=== PATIENT | female | born 1995 | race Caucasian/White ===

== ENCOUNTER 2018-05-20 15:59 | Emergency (ER) | payer BC ==
--- NOTE | 2018-05-20 17:00 | ED ---
General Adult HPI - General Chief complaint: Abdominal Pain Stated complaint: 7 weeks and cramping Time Seen by Provider: 05/20/18 16:51 Source: patient Mode of arrival: ambulatory Limitations: no limitations - History of Present Illness Initial comments: Dictation was produced using [employer] dictation software. please excuse any grammatical, word or spelling errors. Chief Complaint: 22-year-old female with no significant past medical history presents with pelvic pain. History of Present Illness: 22-year-old female presents with chief complaint of pelvic pain. Patient states she's been having pain today. Patient states she is approximately 7 weeks based on last menstrual period. She is scheduled to have an ultrasound in the next few days. She states that her cramping is constant to the suprapubic area. Denies any vaginal bleeding. No nausea vomiting or diarrhea. She has been taking vitamins. The ROS documented in this emergency department record has been reviewed and confirmed by me. Those systems with pertinent positive or negative responses have been documented in the HPI. All other systems are other negative and/or noncontributory. PHYSICAL EXAM: General Impression: Alert and oriented x3, not in acute distress HEENT: Normocephalic atraumatic, extra-ocular movements intact, pupils equal and reactive to light bilaterally, mucous membranes moist. Cardiovascular: Heart regular rate and rhythm, S1&S2 audible, no murmurs, rubs or gallops Chest: Lungs clear to auscultation bilaterally, no rhonchi, no wheeze, no rales Abdomen: Bowel sounds present, abdomen soft, non-tender, non-distended, no organomegaly Musculoskeletal: Pulses present and equal in all extremities, no peripheral edema Motor: no focal deficits noted Neurological: CN II-XII grossly intact, no focal motor or sensory deficits noted Skin: Intact with no visualized rashes Psych: Normal affect and mood ED course: 22yo female presents with first trimester pelvic pain. Vital signs upon arrival shows blood pressure 180/125. Rest of vital signs within acceptable limits. Patient appears comfortable at this time. Physical examination is benign. Laboratory evaluation obtained. CBC, coag panel, electronic, urinalysis is unremarkable. OB ultrasound shows early [place] [address]. Patient is comfortable at this time. She does have established care with ASSISTED LIVING NURSING DIRECTOR. Patient clear for discharge. Patient refusing pelvic exam at this time. Patient to be discharge. Told to return if she has worsening pain, vaginal bleeding. Otherwise she is told to make an appointment with her ASSISTED LIVING NURSING DIRECTOR as soon as possible. Agreeable to disposition. - Related Data Home Medications Medication Instructions Recorded Confirmed Pnv No.95/Ferrous Fum/Folic AC 1 tab PO DAILY 05/20/18 05/20/18 [ Multivitamin Tablet] Allergies Allergy/AdvReac Type Severity Reaction Status Date / Time No Known Allergies Allergy Verified 05/20/18 17:06 Review of Systems ROS Statement: Those systems with pertinent positive or pertinent negative responses have been documented in the HPI. ROS Other: All systems not noted in ROS Statement are negative. Past Medical History Past Medical History: No Reported History History of Any Multi-Drug Resistant Organisms: None Reported Past Surgical History: No Surgical Hx Reported Past Psychological History: No Psychological Hx Reported Smoking Status: Never smoker Past Alcohol Use History: None Reported Past Drug Use History: None Reported General Exam Limitations: no limitations Course Vital Signs 05/20/18 05/20/18 05/20/18 16:07 18:26 18:59 Temperature 98.6 F Pulse Rate 88 91 90 Respiratory 18 16 18 Rate Blood Pressure 180/125 141/103 145/98 O2 Sat by Pulse 99 100 99 Oximetry Medical Decision Making - Lab Data Result diagrams: 05/20/18 17:14 05/20/18 17:14 Lab Results 05/20/18 05/20/18 05/20/18 Range/Units 17:14 17:14 17:14 WBC 7.9 (3.8-10.6) k/uL RBC 4.78 (3.80-5.40) m/uL Hgb 14.2 (11.4-16.0) gm/dL Hct 42.0 (34.0-46.0) % MCV 87.8 (80.0-100.0) fL MCH 29.7 (25.0-35.0) pg MCHC 33.8 (31.0-37.0) g/dL RDW 13.8 (11.5-15.5) % Plt Count 275 (150-450) k/uL Neutrophils % 66 % Lymphocytes % 27 % Monocytes % 4 % Eosinophils % 1 % Basophils % 0 % Neutrophils # 5.2 (1.3-7.7) k/uL Lymphocytes # 2.2 (1.0-4.8) k/uL Monocytes # 0.3 (0-1.0) k/uL Eosinophils # 0.1 (0-0.7) k/uL Basophils # 0.0 (0-0.2) k/uL PT (9.0-12.0) sec INR (<1.2) Sodium 139 (137-145) mmol/L Potassium 3.9 (3.5-5.1) mmol/L Chloride 106 (98-107) mmol/L Carbon Dioxide 24 (22-30) mmol/L Anion Gap 9 mmol/L BUN 9 (7-17) mg/dL Creatinine 0.75 (0.52-1.04) mg/dL Est GFR (CKD-EPI)AfAm >90 (>60 ml/min/1.73 sqM) Est GFR (CKD-EPI)NonAf >90 (>60 ml/min/1.73 sqM) Glucose 97 (74-99) mg/dL Calcium 9.5 (8.4-10.2) mg/dL HCG, Quant 50989.3 mIU/mL Urine Color Urine Appearance (Clear) Urine pH (5.0-8.0) Ur Specific [place] (1.001-1.035) Urine Protein (Negative) Urine Glucose (UA) (Negative) Urine Ketones (Negative) Urine Blood (Negative) Urine Nitrite (Negative) Urine Bilirubin (Negative) Urine Urobilinogen (<2.0) mg/dL Ur Leukocyte Esterase (Negative) Blood Type A Positive Blood Type Recheck CABO Indicated Antibody Screen NEGATIVE Spec Expiration Date 05/23/2018231305/20/18 05/20/18 Range/Units 17:14 17:20 WBC (3.8-10.6) k/uL RBC (3.80-5.40) m/uL Hgb (11.4-16.0) gm/dL Hct (34.0-46.0) % MCV (80.0-100.0) fL MCH (25.0-35.0) pg MCHC (31.0-37.0) g/dL RDW (11.5-15.5) % Plt Count (150-450) k/uL Neutrophils % % Lymphocytes % % Monocytes % % Eosinophils % % Basophils % % Neutrophils # (1.3-7.7) k/uL Lymphocytes # (1.0-4.8) k/uL Monocytes # (0-1.0) k/uL Eosinophils # (0-0.7) k/uL Basophils # (0-0.2) k/uL PT 10.1 (9.0-12.0) sec INR 0.9 (<1.2) Sodium (137-145) mmol/L Potassium (3.5-5.1) mmol/L Chloride (98-107) mmol/L Carbon Dioxide (22-30) mmol/L Anion Gap mmol/L BUN (7-17) mg/dL Creatinine (0.52-1.04) mg/dL Est GFR (CKD-EPI)AfAm (>60 ml/min/1.73 sqM) Est GFR (CKD-EPI)NonAf (>60 ml/min/1.73 sqM) Glucose (74-99) mg/dL Calcium (8.4-10.2) mg/dL HCG, Quant mIU/mL Urine Color Light Yellow Urine Appearance Clear (Clear) Urine pH 6.0 (5.0-8.0) Ur Specific [place] 1.005 (1.001-1.035) Urine Protein Trace H (Negative) Urine Glucose (UA) Negative (Negative) Urine Ketones Negative (Negative) Urine Blood Negative (Negative) Urine Nitrite Negative (Negative) Urine Bilirubin Negative (Negative) Urine Urobilinogen <2.0 (<2.0) mg/dL Ur Leukocyte Esterase Negative (Negative) Blood Type Blood Type Recheck Antibody Screen Spec Expiration Date Disposition Clinical Impression: Pelvic pain affecting Disposition: HOME SELF-CARE Condition: Good Instructions (If sedation given, give patient instructions): Pelvic Pain in Women (ED) Is patient prescribed a controlled substance at d/c from ED?: No Referrals: Rochelle Jaime DO [Family Provider] - 1-2 days Time of Disposition: 19:02
[2018-05-20 17:28] LABS: INR 0.9 (<1.2); Prothrombin Time 10.1 sec (9.0-12.0)
[2018-05-20 17:33] LABS: Anion Gap 9 mmol/L; Blood Urea Nitrogen 9 mg/dL (7-17); Calcium 9.5 mg/dL (8.4-10.2); Carbon Dioxide 24 mmol/L (22-30); Chloride 106 mmol/L (98-107); Glucose 97 mg/dL (74-99); Potassium 3.9 mmol/L (3.5-5.1); Sodium 139 mmol/L (137-145)
[2018-05-20 17:42] LABS: Basophils % (A) 0 %; Eosinophils # (A) 0.1 k/uL (0-0.7); Eosinophils % (A) 1 %; HGB 14.2 gm/dL (11.4-16.0); Lymphocytes # (A) 2.2 k/uL (1.0-4.8); Lymphocytes % (A) 27 %; MCH 29.7 pg (25.0-35.0); MCHC 33.8 g/dL (31.0-37.0); MCV 87.8 fL (80.0-100.0); Mean Platelet Volume 6.8; Monocytes # (A) 0.3 k/uL (0-1.0); Monocytes % (A) 4 %; Neutrophils # (A) 5.2 k/uL (1.3-7.7); Neutrophils % (A) 66 %; Platelet Count 275 k/uL (150-450); RBC 4.78 m/uL (3.80-5.40); RDW 13.8 % (11.5-15.5); WBC 7.9 k/uL (3.8-10.6)
[2018-05-20 17:52] LABS: Appearance,Urine Clear (Clear); Bilirubin,Urine Negative (Negative); Blood,Urine Negative (Negative); Color,Urine Light Yellow; Glucose,Urine (UA) Negative (Negative); Ketones,Urine Negative (Negative); Leukocyte Esterase,Urine Negative (Negative); Nitrite,Urine Negative (Negative); Protein,Urine Trace (Negative); Specific Gravity,Urine 1.005 (1.001-1.035); Urobilinogen,Urine <2.0 mg/dL (<2.0)
[2018-05-20 18:28] LABS: HCG,Quantitative Serum 16472.3 mIU/mL
--- NOTE | 2018-05-20 18:47 | US ---
EXAMINATION TYPE: Transabdominal DATE OF EXAM: 05/20/2018 6:19 PM COMPARISON: NONE CLINICAL HISTORY: Pain. Cramping. EXAM PERFORMED: Transvaginal (TV) and Transabdominal (TA) EXAM MEASUREMENTS: GESTATIONAL AGE / DATING Physician Established: Not yet established Dates by LMP: (7 weeks/1 days) EDC: 01/05/2019 Dates by First Scan: No previous this is first scan Dates by Current Scan for: No IUP seen at this time MATERNAL ANATOMY Uterus: 6.9 x 3.5 x 5.0 cm Right Ovary: 2.3 x 1.4 x 1.3cm Left Ovary: 3.1 x 1.9 x 1.5 cm Post CDS / Adnexa: wnl Presence of free fluid: no Presence of corpus luteal cyst: no Presence of subchorionic bleed: no GESTATION / SURVEY Yolk Sac (normal less than 6mm): 2mm IUP: No IUP seen at this time Beta HcG (if available): Not available at this time Gestational sac and yolk sac seen. No pole seen at this time. IMPRESSION: Findings consistent with early intrauterine . Follow-up exam is recommended in 2 weeks to co nfirm a living fetus. No adnexal mass.
[2018-05-20 18:59] VITALS: RESP 18
[2018-05-20 19:15] VITALS: BP 134/87; PULSE 95; TEMP 98.7
== END 2018-05-20 19:14 | disposition home or self-care (01) ==
LOC: EC 15:59
DX: O99.89 Other specified diseases and conditions complicating pregnancy, childbirth and the puerperium (principal); R10.2 Pelvic and perineal pain; Z3A.01 Less than 8 weeks gestation of pregnancy
CPT/HCPCS: 36415; 76801; 76817; 80048; 81003; 84702; 85025; 85610; 86850; 86900; 86901; 87086; 99284

== ENCOUNTER 2018-12-09 16:23 | Observation (INO) | payer BC, OTHER ==
[2018-12-09 17:13] LABS: Basophils % (A) 0 %; Eosinophils # (A) 0.1 k/uL (0-0.7); Eosinophils % (A) 1 %; HCT 33.5 % (34.0-46.0); HGB 11.1 gm/dL (11.4-16.0); Lymphocytes # (A) 1.8 k/uL (1.0-4.8); Lymphocytes % (A) 21 %; MCH 29.7 pg (25.0-35.0); MCHC 33.1 g/dL (31.0-37.0); MCV 89.8 fL (80.0-100.0); Mean Platelet Volume 8.1; Monocytes # (A) 0.5 k/uL (0-1.0); Monocytes % (A) 5 %; Neutrophils # (A) 6.2 k/uL (1.3-7.7); Neutrophils % (A) 70 %; Platelet Count 241 k/uL (150-450); Poikilocytosis Slight; RBC 3.73 m/uL (3.80-5.40); RDW 14.5 % (11.5-15.5); WBC 8.8 k/uL (3.8-10.6)
[2018-12-09 17:26] LABS: ALT 16 U/L (9-52); AST 23 U/L (14-36); African American GFR (CKD) >90 (>60 ml/min/1.73 sqM); Blood Urea Nitrogen 4 mg/dL (7-17); LDH 412 U/L (313-618)
[2018-12-09 17:59] LABS: Appearance,Urine Clear (Clear); Bilirubin,Urine Negative (Negative); Blood,Urine Negative (Negative); Color,Urine Light Yellow; Glucose,Urine (UA) Negative (Negative); Ketones,Urine Negative (Negative); Leukocyte Esterase,Urine Negative (Negative); Nitrite,Urine Negative (Negative); Protein,Urine Trace (Negative); Specific Gravity,Urine 1.006 (1.001-1.035); Urobilinogen,Urine <2.0 mg/dL (<2.0)
[2018-12-09] MEDS ORDERED: ONDANSETRON 4 MG/2 ML VIAL IVP STA (18:16)
[2018-12-09] MEDS: LACTATED RINGERS 1,000 ML IV SCH ×4 (18:40→23:39)
[2018-12-09 19:47] VITALS: RESP 16
[2018-12-09] MEDS ORDERED: ONDANSETRON 4 MG/2 ML VIAL IVP PRN (19:52)
--- NOTE | 2018-12-09 21:29 | P.HPOB ---
History of Present Illness H&P Date: 12/09/18 Chief Complaint: Nausea and vomiting Stacia is a 23-year-old at 34 weeks 5 days gestation who ryes complaining of nausea and vomiting since Thursday. She relates she's been able to keep very little down some water but no food, essentially every time she eats she throws up. This is a similar return to what she would had first almost 4-5 months for . She relates that she had had no other issues or problems with the and she was feeling well up until Thursday. On arrival to labor and delivery was noted that she had some mild elevations in her blood pressure including a 140/103 but predominantly in the 140/80 range. Due to this pre- clamped labs were drawn. She denied headache, epigastric pain or any visual changes. She also is noted to be dehydrated and was extremely anxious on arrival. On physical exam her heart was regular, lungs were clear, extremities without pain. Abdomen was soft gravid uterus is noted. Category 1 tracing is noted. Deep tendon reflexes are +2. Pertinent labs did include uric acid level VIII which is a very soft predictor of preeclampsia and in most literature now is not considered to be an accurate finding for preeclampsia. She also is noted to have a elevation in her protein to creatinine ratio 0.47. However, she also only has trace of protein in her urine and realistically I would expect at least 2+ protein before I would be concerned about her protein Kretsch creatinine ratio elevation particularly in the face of dehydration causing creatinine to be falsely elevated. I did explain all this to her and I have advised observation status so we can continue to monitor her blood pressures which of recently been 120/80 and to complete a 24 urine just to rule out elevated protein levels which could be indicative of early mild preeclampsia. Should she have early mild preeclampsia would recommend steroids to assist and boosting lung maturity for the fetus and very close monitoring moving forward. Assessment intrauterine at 34 weeks 5 days gestation.? Gestational hypertension versus anxiety versus preeclampsia Plan 24-hour urine and observation with serial blood pressure Past Medical History Past Medical History: No Reported History History of Any Multi-Drug Resistant Organisms: None Reported Past Surgical History: No Surgical Hx Reported Smoking Status: Never smoker Medications and Allergies Home Medications Medication Instructions Recorded Confirmed Type Acetaminophen [Tylenol] 500 mg PO Q4-6H PRN 12/09/18 12/09/18 History Calcium Carbonate [Tums] 500 mg PO 12/09/18 History Allergies Allergy/AdvReac Type Severity Reaction Status Date / Time No Known Allergies Allergy Verified 12/09/18 16:34 Exam Osteopathic Statement: *. No significant issues noted on an osteopathic structural exam other than those noted in the History and Physical/Consult. Vital Signs Temp Pulse Resp BP BP 12/09/18 19:28 96.6 F L 96 16 121/80 12/09/18 16:37 97.8 F 99 18 142/103 158/100 Intake and Output 12/09/18 12/09/18 12/09/18 06:59 14:59 22:59 Other: Weight 81.647 kg Results Result Diagrams: 12/09/18 16:56 12/09/18 16:56 Abnormal Lab Results - Last 24 Hours (Table) 12/09/18 12/09/18 12/09/18 Range/Units 16:52 16:52 16:56 RBC 3.73 L (3.80-5.40) m/uL Hgb 11.1 L (11.4-16.0) gm/dL Hct 33.5 L (34.0-46.0) % BUN (7-17) mg/dL Uric Acid (3.7-7.4) mg/dL Urine Protein Trace H (Negative) U Random Total Protein 34 H (<12) mg/dL 12/09/18 Range/Units 16:56 RBC (3.80-5.40) m/uL Hgb (11.4-16.0) gm/dL Hct (34.0-46.0) % BUN 4 L (7-17) mg/dL Uric Acid 8.0 H (3.7-7.4) mg/dL Urine Protein (Negative) U Random Total Protein (<12) mg/dL
[2018-12-09] MEDS ORDERED: diphenhydrAMINE 25 MG CAP PO PRN (23:40)
[2018-12-09] MEDS ORDERED: ACETAMINOPHEN TAB 325 MG TAB PO PRN (23:40)
[2018-12-09] MEDS ORDERED: CALCIUM CARBONATE 500 MG CHEWABLE PO PRN (23:44)
[2018-12-09 23:49] VITALS: BMI 34.0
[2018-12-10] MEDS: LACTATED RINGERS 1,000 ML IV SCH ×2 (02:02→11:49)
[2018-12-10 07:51] VITALS: BP 136/92; PULSE 88; TEMP 97.6
--- NOTE | 2018-12-11 12:41 | P.DS ---
Providers Date of admission: 12/09/18 19:41 Expected date of discharge: 12/10/18 Attending physician: Mauri Whitfield Primary care physician: Stated None Hospital Course: This is a 23-year-old female 1 para 0 at 34-5/7 weeks who initially presented for Dr. Whitfield with complaints of nausea and vomiting for 4 days. Upon arrival to triage she did have some elevated blood pressures but was also noted to be very anxious. She was admitted for IV hydration and antiemetics. She also underwent a 24-hour urine collection due to a protein to creatinine ratio that was elevated. All of her other labs were within normal limits. Her blood pressures for the most part were in the 120s over 70s to 80s. However she did have some elevated blood pressures up to 140s over 100s on admission. She denied any headache or blurry vision. She had some mild edema that had been unchanged. At the time that her 24-hour urine collection was completed, she had not required Zofran for almost 12 hours and was holding down food without difficulty. Her blood pressures remained stable. NSTs are reactive. Her 24 urine collection showed 867 mg of protein in a 24-hour period. She was advised that she does have preeclampsia based on these criteria and that she will need close follow-up. She has a follow-up appointment with Dr. Jaime on Thursday. She is advised to return to the hospital if she has any decreased movement, headaches, blurry vision, epigastric pain, or any other concerning symptoms. Patient Condition at Discharge: Stable Plan - Discharge Summary New Discharge Prescriptions: No Action Acetaminophen [Tylenol] 500 mg PO Q4-6H PRN PRN Reason: sleep Calcium Carbonate [Tums] 500 mg PO Discharge Medication List Acetaminophen [Tylenol] 500 mg PO Q4-6H PRN 12/09/18 [History] Calcium Carbonate [Tums] 500 mg PO 12/09/18 [History] Follow up Appointment(s)/Referral(s): Rochelle Jaime DO [Doctor of Osteopathic Medicine] - 12/13/18 Discharge Disposition: HOME SELF-CARE
== END 2018-12-10 20:45 | disposition home or self-care (01) ==
LOC: FBPOP 16:23 → 4FBP 19:41
PROVIDERS: ADMIT Obstetrics & Gynecology; ATTEND Obstetrics & Gynecology
DX: O14.93 Unspecified pre-eclampsia, third trimester (principal); O99.283 Endocrine, nutritional and metabolic diseases complicating pregnancy, third trimester; E86.0 Dehydration; O21.2 Late vomiting of pregnancy; Z3A.34 34 weeks gestation of pregnancy
CPT/HCPCS: 59025; 96376; 96361 ×2; 96374; 82570; 84156 ×2; 81050; 82565; 83615; 84450; 84460; 84520; 84550; 85025; 81003; G0463; G0378 ×2; J2405 ×2; 96360; 96375; 99215

== ENCOUNTER 2018-12-12 20:43 | Inpatient (IN) | payer OTHER ==
[2018-12-12 21:51] LABS: Basophils % (A) 0 %; Eosinophils # (A) 0.1 k/uL (0-0.7); Eosinophils % (A) 1 %; HCT 32.6 % (34.0-46.0); HGB 10.7 gm/dL (11.4-16.0); Lymphocytes # (A) 1.8 k/uL (1.0-4.8); Lymphocytes % (A) 22 %; MCH 29.9 pg (25.0-35.0); MCHC 32.9 g/dL (31.0-37.0); MCV 91.1 fL (80.0-100.0); Mean Platelet Volume 8.4; Monocytes # (A) 0.5 k/uL (0-1.0); Monocytes % (A) 6 %; Neutrophils # (A) 5.9 k/uL (1.3-7.7); Neutrophils % (A) 69 %; Platelet Count 219 k/uL (150-450); Poikilocytosis Slight; RBC 3.58 m/uL (3.80-5.40); RDW 14.4 % (11.5-15.5); WBC 8.4 k/uL (3.8-10.6)
[2018-12-12 22:07] LABS: ALT 18 U/L (9-52); AST 20 U/L (14-36); African American GFR (CKD) >90 (>60 ml/min/1.73 sqM); Blood Urea Nitrogen 4 mg/dL (7-17); LDH 438 U/L (313-618); Uric Acid 6.4 mg/dL (3.7-7.4)
[2018-12-12 22:30] LABS: Appearance,Urine Clear (Clear); Bilirubin,Urine Negative (Negative); Blood,Urine Negative (Negative); Color,Urine Light Yellow; Glucose,Urine (UA) Negative (Negative); Ketones,Urine Negative (Negative); Leukocyte Esterase,Urine Negative (Negative); Nitrite,Urine Negative (Negative); PH, Urine 6.5 (5.0-8.0); Protein,Urine Trace (Negative); Specific Gravity,Urine 1.006 (1.001-1.035); Urobilinogen,Urine <2.0 mg/dL (<2.0)
[2018-12-12] MEDS ORDERED: diphenhydrAMINE 25 MG CAP PO PRN (23:09)
[2018-12-12] MEDS ORDERED: diphenhydrAMINE 50 MG CAP PO PRN (23:09)
[2018-12-12] MEDS: BETAMET ACET-BETAMETH SOD PHOS 6 MG/ML VIAL IM SCH (23:31)
[2018-12-12] MEDS: ACETAMINOPHEN TAB 500 MG TAB PO PRN (23:32)
[2018-12-13 00:25] VITALS: BMI 34.0
[2018-12-13] MEDS ORDERED: MAGNESIUM SULFATE-WATER PMX 4 GM in WATER FOR INJECTION 1 100ML.BAG IVPB ONE (01:31)
[2018-12-13] MEDS ORDERED: CALCIUM GLUCONATE 1 GM/10 ML VIAL IV PRN (01:31)
[2018-12-13] MEDS: LACTATED RINGERS 1,000 ML IV SCH (01:50)
[2018-12-13] MEDS: MAGNESIUM SULFATE-WATER PMX 20 GM in WATER FOR INJECTION 1 500ML.BAG IV SCH ×3 (02:01→22:04)
--- NOTE | 2018-12-13 07:26 | P.MSEPDOC ---
Presenting Problems - Arrival Data Date of Arrival on Unit: 12/12/18 Time of Arrival on Unit: 20:43 Mode of Transport: Portable - Complaint OB-Reason for Admission/Chief Complaint: PIH Comment: headache, nausea, cramping Medical History - Information : 1 Para: 0 Term: 0 : 0 Abortions: Spontaneous or Elective: 0 Number of Living Children: 0 - Gestational Age Gestational Age by [place]LA (wks/days): 35 Weeks and 1 Days - History Complications: Preeclampsia Review of Systems - Review of Systems Constitutional: No problems Breast: No problems ENT: No problems Cardiovascular: No problems Respiratory: No problems Gastrointestinal: No problems Genitourinary: No problems Musculoskeletal: No problems Neurological: No problems Skin: No problems Vital Signs - Temperature Temperature: 95.7 F Temperature Source: Temporal Artery Scan - Pulse Right Brachial Pulse Rate: 91 Pulse Assessment Method: Automatic Cuff - Respirations Respiratory Rate: 16 Oxygen Delivery Method: Room Air - Blood Pressure Right Arm Sitting Blood Pressure: 136/87 Blood Pressure Mean: 103 Blood Pressure Source: Automatic Cuff Medical Screen Scoring (Pre) - Cervical Exam Dilation: 0 cm = 0 Membranes: Intact - Uterine Contractions Frequency: N/A - Maternal Vital Signs Maternal Temperature: N/A Maternal Blood Pressure: Diastolic > 89 = 1 Signs of Preeclampsia: Headache = 1, Nausea/Vomiting = 1, Edema of Face = 4 Maternal Respirations: N/A - Maternal Trauma Maternal Trauma: N/A - Assessment - Baby A Baseline FHR: 125 Heart Rate - NICHD Category: Category II (Indeterminate) = 3 NST: Reactive - Total Score - Baby A Total Score - Baby A: 10 - Total Score - Baby B Total Score - Baby B: 7 - Total Score - Baby C Total Score - Baby C: 7 - Level of Risk - Baby A Level of Risk - Baby A: High (10+) - Level of Risk - Baby B Level of Risk - Baby B: Medium (6-9) - Level of Risk - Baby C Level of Risk - Baby C: Medium (6-9) Physician Notification (Pre) - Physician Notified Physician Notified Date: 12/12/18 Physician Notified Time: 21:07 Spoke With: Augustin Ingram Order Received: Yes ([facility] work up) Physician Notification (Post) - Physician Notified Physician Notified Date: 12/12/18 Physician Notified Time: 23:00 Spoke With: Augustin New Order Received: Yes (admit obv, give Celestone) Disposition - Disposition OB Disposition: Admit, Observe, LDRP Suite I agree with the RN Medical Screening Exam: Yes Risk & Benefit of care provided described in d/c instruction: Yes Diagnosis: MILD TO MODERATE PRE-ECLAMPSIA, THIRD TRIMESTER
[2018-12-13] MEDS: ACETAMINOPHEN TAB 500 MG TAB PO PRN ×3 (08:10→17:53)
--- NOTE | 2018-12-13 08:48 | US ---
EXAMINATION TYPE: US OB >= 14 wk fetus DATE OF EXAM: 12/13/2018 COMPARISON: None CLINICAL HISTORY: Preeclampsia, possible medical induction of labor TECHNIQUE: Grayscale and B-mode sonography were performed of the gravid uterus with a transabdominal technique. GESTATIONAL AGE / DATING Physician Established: (35 weeks/2 days) EDC: 01/15/19 Dates by LMP: (36 weeks/4 days) EDC: 01/05/19 Dates by First Scan: not available Dates by Current Scan: (34 weeks/6 days) EDC: 01/18/19 SURVEY IUP: Single PLACENTA: Posterior PREVIA: No Previa KIRIT: 9.49 cm Normal CERVICAL LENGTH (transabdominal: norm > 3.0cm): not seen, no vaginal needed per Kelli [employer] PRESENTATION: Vertex BPD: 8.7 cm 35 weeks / 2 days HC: 31.4 cm 35 weeks / 1 days AC: 30.8 cm 34 weeks / 5 days FL: 6.9 cm 35 weeks / 2 days ESTIMATED WEIGHT IN GRAMS: 2564 grams ESTIMATED WEIGHT IN LBS/OZ: 5 lbs. 10 oz. WEIGHT PERCENTAGE BASED ON ESTABLISHED DATES: 39% HC/AC: 1.0 FL/AC: 22.3 HEART RATE: 134 bpm RHYTHM: Normal IMPRESSION: Single live intrauterine with a vertex position as a calculated sonographic age of 34 weeks and 6 days and estimated date of delivery of 01/18/2019. Amniotic fluid index is within normal limit s at 9.49. Cervical length is not visualized. Heart rate of 134 bpm.
[2018-12-13] MEDS ORDERED: CALCIUM CARBONATE 500 MG CHEWABLE PO PRN (09:00)
[2018-12-13] MEDS ORDERED: BUTORPHANOL 1 MG/ML 1 ML VIAL IV PRN (09:05)
[2018-12-13] MEDS ORDERED: DINOPROSTONE 10 MG INSERT.ER VAGINAL ONE (09:05)
--- NOTE | 2018-12-13 12:28 | P.HPOB ---
History of Present Illness H&P Date: 12/13/18 Chief Complaint: with severe features 23-year-old presented yesterday at 35 weeks and 1 day with a headache and increased blood pressures. She's had a known to have mild preeclampsia is her 24 urine protein last week was over 800. She was diagnosed with preeclampsia with severe features by Dr. Ruffin, and placed on magnesium sulfate. She is also given one dose of Celestone at 11 PM. I spoke with maternal- medicine this morning about her case. They recommended to move towards delivery. Her labs remained normal, blood pressures are stable with magnesium sulfate on board, ultrasound today showed a 5 lbs. 10 oz. child in the vertex position with an KIRIT of 9.5. Her cervix is closed and 2% effaced, -1 station. The plan is placed Cervidil today and move towards induction. heart tones are 130s with moderate variability. Review of Systems All systems: negative Constitutional: Denies chills, Denies fever Eyes: denies blurred vision, denies pain Ears, nose, mouth and throat: Reports headache, Denies sore throat Cardiovascular: Denies chest pain, Denies shortness of breath Respiratory: Denies cough Gastrointestinal: Reports nausea, Reports vomiting, Denies abdominal pain, Denies diarrhea Genitourinary: Denies dysuria, Denies hematuria Musculoskeletal: Denies myalgias Integumentary: Denies pruritus, Denies rash Neurological: Denies numbness, Denies weakness Psychiatric: Denies anxiety, Denies depression Endocrine: Denies fatigue, Denies weight change Past Medical History Past Medical History: No Reported History Additional Past Medical History / Comment(s): Obstetric history: This is her first . Blood type is A+, antigen negative, rubella nonimmune, hepatitis B negative, HIV negative. History of Any Multi-Drug Resistant Organisms: None Reported Past Surgical History: No Surgical Hx Reported Past Anesthesia/Blood Transfusion Reactions: No Reported Reaction Past Psychological History: No Psychological Hx Reported Smoking Status: Never smoker Past Alcohol Use History: None Reported Past Drug Use History: None Reported - Past Family History Father Family Medical History: No Reported History Medications and Allergies Home Medications Medication Instructions Recorded Confirmed Type Acetaminophen [Tylenol] 500 mg PO Q4-6H PRN 12/09/18 12/12/18 History Calcium Carbonate [Tums] 500 mg PO TID PRN 12/09/18 12/12/18 History Allergies Allergy/AdvReac Type Severity Reaction Status Date / Time No Known Allergies Allergy Verified 12/12/18 20:55 Exam Osteopathic Statement: *. No significant issues noted on an osteopathic structural exam other than those noted in the History and Physical/Consult. Vital Signs Temp Pulse Resp BP Pulse Ox 12/13/18 08:00 111 H 16 137/82 12/13/18 07:26 95.7 F L 91 16 136/87 12/13/18 07:00 118 H 16 134/81 99 12/13/18 06:00 121 H 16 141/93 12/13/18 05:00 91 16 136/87 12/13/18 04:48 99 16 138/87 12/13/18 03:48 102 H 16 119/77 12/13/18 02:48 101 H 16 129/78 98 12/13/18 02:33 95.7 F L 112 H 16 128/66 97 12/13/18 02:18 101 H 16 119/72 99 12/13/18 02:03 94 16 135/77 100 12/12/18 23:30 98.2 F 94 16 163/102 12/12/18 20:59 97.4 F L 118 H 18 163/104 Intake and Output 12/12/18 12/13/18 12/13/18 22:59 06:59 14:59 Intake Total 355 475 Output Total 1400 700 Balance -1045 -225 Intake: Intake, IV Titration 355 350 Amount Lactated Ringers 1,000 ml 80 100 @ 20 mls/hr IV .Q24H LIBBY Rx#:[id number] Magnesium Sulfate-Water 175 250 Pmx 20 gm In Water For Injection 1 500ml.bag @ 2 GM/HR 50 mls/hr IV .Q10H LIBBY Rx#:[id number] Magnesium Sulfate-Water 100 Pmx 4 gm In Water For Injection 1 100ml.bag @ 300 mls/hr IVPB ONCE ONE Rx#:[id number] Oral 125 Output: Urine 1400 700 Other: Weight 81.647 kg Heart: Regular rate and rhythm Lungs: Clear to auscultation bilaterally Abdomen: Soft, nontender Extremities: Negative Homans sign, 3+ DTRs bilaterally Results Result Diagrams: 12/12/18 21:39 12/12/18 21:39 Abnormal Lab Results - Last 24 Hours (Table) 12/12/18 12/12/18 12/12/18 Range/Units 21:17 21:17 21:39 RBC (3.80-5.40) m/uL Hgb (11.4-16.0) gm/dL Hct (34.0-46.0) % BUN 4 L (7-17) mg/dL Urine Protein Trace H (Negative) U Random Total Protein 27 H (<12) mg/dL 12/12/18 Range/Units 21:39 RBC 3.58 L (3.80-5.40) m/uL Hgb 10.7 L (11.4-16.0) gm/dL Hct 32.6 L (34.0-46.0) % BUN (7-17) mg/dL Urine Protein (Negative) U Random Total Protein (<12) mg/dL Assessment and Plan (1) Severe preeclampsia Current Visit: Yes Status: Acute Code(s): O14.10 - SEVERE PRE-ECLAMPSIA, UNSPECIFIED TRIMESTER SNOMED Code(s): 92332547 Plan: 1. We will actively move towards delivery with Cervidil and then amniotomy and Pitocin. 2. I will continue the magnesium sulfate to prevent seizures 3. Seizure precautions 4. This plan was discussed with the patient, her mother, and the father of the baby at length. Is able to 7 cm her questions. We explained the process of preeclampsia, possible delivery and then need for delivery now. She does understand that this baby is and will have to presented to the nursery. She understands that being premature the baby could have some difficulty in breathing and needed assistance just after delivery.
[2018-12-13] MEDS ORDERED: ONDANSETRON 4 MG/2 ML VIAL IVP STA (18:09)
[2018-12-13] MEDS ORDERED: LIDOCAINE 0.5% (PF) 5 MG/ML (50 ML SDV) SQ PRN (21:15)
[2018-12-13] MEDS ORDERED: CARBOPROST TROMETHAMINE 250 MCG/ML 1 ML AMP IM PRN (21:15)
[2018-12-13] MEDS ORDERED: OXYTOCIN 30 UNITS/500 ML NS 30 UNIT in SALINE 1 500ML.BAG IV SCH (21:15)
[2018-12-13] MEDS ORDERED: METHYLERGONOVINE 0.2 MG/ML 1 ML AMP IM PRN (21:15)
[2018-12-13] MEDS ORDERED: AMPICILLIN 2,000 MG in SODIUM CHLORIDE 0.9% 100 ML IVPB STA (21:15)
[2018-12-13] MEDS ORDERED: OXYTOCIN 10 UNIT/ML 1 ML VIAL IM PRN (21:15)
[2018-12-13] MEDS ORDERED: TERBUTALINE 1 MG/ML VIAL SQ PRN (21:15)
[2018-12-13] MEDS: BETAMET ACET-BETAMETH SOD PHOS 6 MG/ML VIAL IM SCH (23:29)
[2018-12-14] MEDS: AMPICILLIN 1,000 MG in SODIUM CHLORIDE 0.9% 50 ML IVPB SCH ×2 (02:03→06:30)
[2018-12-14] MEDS: LACTATED RINGERS 1,000 ML IV SCH ×4 (03:10→20:40)
[2018-12-14] MEDS ORDERED: CITRIC ACID-SODIUM CITRATE 15 ML CUP PO ONE (06:11)
[2018-12-14] MEDS ORDERED: ONDANSETRON 4 MG/2 ML VIAL ONE (06:38)
[2018-12-14] MEDS ORDERED: ePHEDrine SULFATE/0.9% NACL/PF 50 MG/5 ML SYRINGE IV ONE (06:38)
[2018-12-14] MEDS ORDERED: OXYTOCIN 10 UNIT/ML 1 ML VIAL ONE (06:38)
[2018-12-14] MEDS ORDERED: MORPHINE SULFATE (PF) 0.3 MG/0.3 ML SYR ONE (06:38)
[2018-12-14] MEDS ORDERED: KETOROLAC 30 MG/ML 1 ML VIAL ONE (06:38)
[2018-12-14] MEDS ORDERED: ACETAMINOPHEN TAB 325 MG TAB PO PRN (07:50)
[2018-12-14] MEDS ORDERED: LANOLIN CREAM 5 GM TUBE TOPICAL PRN (07:50)
[2018-12-14] MEDS ORDERED: diphenhydrAMINE 25 MG CAP PO PRN (07:50)
[2018-12-14] MEDS ORDERED: diphenhydrAMINE 50 MG CAP PO PRN (07:50)
[2018-12-14] MEDS ORDERED: ZOLPIDEM 5 MG TAB PO PRN (07:50)
[2018-12-14] MEDS ORDERED: diphenhydrAMINE 50 MG/ML 1 ML VIAL IVP PRN ×2 (07:50)
[2018-12-14] MEDS ORDERED: METOCLOPRAMIDE 5 MG/ML 2 ML VIAL IVP PRN (07:50)
[2018-12-14] MEDS ORDERED: SIMETHICONE 80 MG CHEWABLE PO PRN (07:50)
[2018-12-14] MEDS ORDERED: ONDANSETRON 4 MG/2 ML VIAL IVP PRN (07:50)
[2018-12-14] MEDS ORDERED: NALOXONE 0.4 MG/ML 1 ML VIAL IV PRN (07:50)
--- NOTE | 2018-12-14 07:57 | P.OP ---
Date of Procedure: 12/14/18 Preoperative Diagnosis: 1. at 35 weeks and 3 days 2. Preeclampsia severe features 3. Failure of induction of labor Postoperative Diagnosis: 1. at 35 weeks and 3 days 2. Preeclampsia severe features 3. Failure of induction of labor Procedure(s) Performed: Primary low transverse Anesthesia: spinal Surgeon: Rochelle Jaime Hydraulic Technician #1: Alfredo Anguiano Estimated Blood Loss (ml): 300 IV fluids (ml): 700 Urine output (ml): 250 Pathology: other (Placenta) Condition: stable Disposition: floor Indications for Procedure: 23-year-old presented at 35 weeks and 1 day with a severe headache and low pressures of over 160/100. She was placed on magnesium sulfate and given a course of celestone by Dr. Ruffin. When I came to see her in the morning and spoke with maternal- medicine, induction of labor was begun. Placed Cervidil on the cervix that was closed, 50% effaced, and -1 station. heart tones were 1:30 with moderate variability and accelerations. Cervidil was removed 12 hours later. Her cervix was then still closed, 70% effaced, and -1 station. Pitocin was started. Pitocin was given for over 10 hours, up to 16 milliunits of Pitocin, but the patient did not into good active labor pattern. Due to the patient's diagnosis of preeclampsia was severe features, is not prudent to wait for further induction. Informed consent was obtained and section was called. Operative Findings: Viable male, Apgars pending, weight 5 pounds 9.6 ounces Description of Procedure: Patient was taken to the operating room where spinal anesthesia was found be adequate. She was prepped and draped in normal sterile fashion in dorsal supine position with a leftward tilt. Pfannenstiel skin incision was made the scalpel and carried through to the underlying layer of fascia with the scalpel. Fascia was incised in midline and carried bilaterally with the Oliva scissors. The superior aspect of the fascial incision was grasped with Cyndee clamps elevated and the underlying rectus muscles dissected off with the Oliva's. Attention was then turned to inferior aspect of same incision which in a similar fashion was grasped tented up and the underlying rectus muscles dissected off with the Oliva's. The rectus muscles were the midline and the peritoneum was identified tented up and entered sharply with the scalpel. The incision was extended superiorly and inferiorly with good visualization of the bladder. The bladder blade was inserted and the vesicouterine peritoneum was incised the Metzenbaums then carried bilaterally and bladder flap created digitally. A low transverse incision was then made on the uterus with the scalpel. This was carried bilaterally and digital manner. 's head delivered atraumatically, nose and mouth bulb suctioned, cord clamped and cut, infant handed off to waiting nurses. Apgars pending, weight 5 lbs. 9.6 oz. Placenta delivered manually, intact with three-vessel cord. The uterus is exteriorized and cleared of all clots and debris. The uterine incision was closed with 0 Vicryl in a running locked fashion. Second layer of the same sutures used in imbricating fashion to obtain excellent hemostasis. Bladder flap was then reapproximated using 2-0 Vicryl in a running fashion. Both ovaries and tubes appeared normal. The uterus was placed back into the abdomen. The peritoneum was reapproximated using 2-0 Vicryl in a running fashion. The muscles were reapproximated using 2- 0 Vicryl in interrupted fashion. The fascia was reapproximated using 0 Vicryl in a running fashion. The subcutaneous tissues closed with 3-0 Vicryl running fashion. The skin was closed mikaela. Patient tolerated the procedure well, sponge and instrument counts were correct times 2 and she was taken to the recovery room in stable condition.
[2018-12-14] MEDS ORDERED: OXYTOCIN 20 UNITS/1000 ML NS 1,000 ML IV SCH (08:00)
[2018-12-14] MEDS: MAGNESIUM SULFATE-WATER PMX 20 GM in WATER FOR INJECTION 1 500ML.BAG IV SCH ×2 (09:35→19:37)
[2018-12-14] MEDS ORDERED: MEASLES-MUMPS-RUBELLA VACC/PF 12,500 UNIT/0.5 ML VIAL SQ ONE (13:40)
[2018-12-14] MEDS: KETOROLAC 30 MG/ML 1 ML VIAL IVP PRN (14:02)
[2018-12-14] MEDS: SENNOSIDES-DOCUSATE SODIUM 1 EACH TAB PO SCH (19:38)
[2018-12-15] MEDS: LACTATED RINGERS 1,000 ML IV SCH ×3 (01:10→18:15)
[2018-12-15] MEDS: MAGNESIUM SULFATE-WATER PMX 20 GM in WATER FOR INJECTION 1 500ML.BAG IV SCH ×2 (04:25→05:43)
[2018-12-15 06:07] LABS: Basophils % (A) 0 %; Eosinophils % (A) 0 %; HCT 36.1 % (34.0-46.0); HGB 11.5 gm/dL (11.4-16.0); Hypochromasia Moderate; Lymphocytes # (A) 1.7 k/uL (1.0-4.8); Lymphocytes % (A) 15 %; MCH 30.1 pg (25.0-35.0); Mean Platelet Volume 6.7; Monocytes # (A) 0.5 k/uL (0-1.0); Monocytes % (A) 4 %; Neutrophils % (A) 79 %; Platelet Count 246 k/uL (150-450); Poikilocytosis Slight; RBC 3.83 m/uL (3.80-5.40); RDW 14.1 % (11.5-15.5); WBC 11.4 k/uL (3.8-10.6)
[2018-12-15] MEDS: KETOROLAC 30 MG/ML 1 ML VIAL IVP PRN ×2 (06:37→13:14)
--- NOTE | 2018-12-15 07:04 | P.PN ---
Progress Note - Text Progress Note Date: 12/15/18 Patient without complaints. Denies headache, paresthesia or weakness. Pruritis and pain treated. VSS Back - spinal site clean and dry A/P POD#1 s/p with spinal duramorph - doing well
--- NOTE | 2018-12-15 08:03 | P.PNOBGPC ---
Subjective - Subjective Principal diagnosis: Status post primary low transverse postop day #1 Interval history: Patient seen and examined. The magnesium sulfate will be discontinued now. Her pain is controlled with Toradol and Tarkio. Blood pressures have been 130s over 80s. She has not passed any flatus yet. Smith catheter still in place. Denies nausea, vomiting, chest pain, shortness of breath or calf pain. She does not have a headache or any vision changes. Patient reports: Reports appetite normal, Reports pain well controlled Objective - Vital Signs Latest vital signs: Vital Signs Temp Pulse Resp BP Pulse Ox 12/15/18 04:59 98.0 F 63 14 90/60 12/15/18 04:00 97.6 F 73 14 113/74 12/15/18 03:00 97.7 F 66 14 115/65 12/15/18 02:00 97.8 F 75 14 119/79 12/15/18 01:00 97.6 F 63 14 118/75 12/15/18 00:00 97.6 F 83 14 124/74 98 12/14/18 23:00 97.9 F 77 16 111/64 98 12/14/18 22:00 98.0 F 80 16 141/95 12/14/18 21:00 98.0 F 80 16 141/95 12/14/18 20:00 97.7 F 76 16 150/85 98 12/14/18 19:00 97.7 F 95 16 139/86 12/14/18 18:00 83 16 121/72 99 12/14/18 17:00 97.5 F L 73 16 121/72 12/14/18 16:00 97.8 F 92 16 128/75 96 12/14/18 15:00 101 H 16 138/83 97 12/14/18 14:00 89 15 140/77 98 12/14/18 13:00 91 16 130/86 98 12/14/18 12:00 98.3 F 91 16 142/82 97 12/14/18 11:00 98.0 F 93 16 136/74 97 12/14/18 10:00 99 16 131/71 96 12/14/18 09:10 98.1 F 97 17 131/73 99 12/14/18 08:40 98.3 F 96 16 138/74 96 12/14/18 08:10 97.9 F 94 16 120/62 94 L Intake and Output 12/14/18 12/15/18 12/15/18 22:59 06:59 14:59 Intake Total 1420 1290 Output Total 1400 1775 Balance 20 -485 Intake: IV 400 350 Magnesium Sulfate-Water 400 350 Pmx 20 gm In Water For Injection 1 500ml.bag @ 2 GM/HR 50 mls/hr IV .Q10H LIBBY Rx#:[id number] Intake, IV Titration 660 640 Amount Lactated Ringers 1,000 ml 80 140 @ 20 mls/hr IV .Q24H LIBBY Rx#:[id number] Magnesium Sulfate-Water 500 500 Pmx 20 gm In Water For Injection 1 500ml.bag @ 2 GM/HR 50 mls/hr IV .Q10H LIBBY Rx#:[id number] Oxytocin 20 Units/1000 ml 80 Ns 1,000 ml @ Per Protocol IV .Q0M LIBBY Rx#: [id number] Oral 360 Other 300 Output: Urine 850 1775 Emesis 550 Other: Voiding Method Indwelling Catheter - Exam Lungs: bilateral: normal Chest: Normal S1, Normal S2 Extremities: Present: other (2 out of 4 DTR), edema (1+) Abdomen: Present: normal appearance, soft. Absent: distention, tenderness Incision: Present: normal, dry, intact Uterus: Present: normal, firm - Labs Labs: Abnormal Lab Results - Last 24 Hours (Table) 12/14/18 12/15/18 Range/Units 07:19 05:44 WBC 11.4 H (3.8-10.6) k/uL Neutrophils # 9.0 H (1.3-7.7) k/uL Magnesium 6.5 H* (1.6-2.3) mg/dL Assessment and Plan (1) Severe preeclampsia Current Visit: Yes Status: Acute Code(s): O14.10 - SEVERE PRE-ECLAMPSIA, UNSPECIFIED TRIMESTER SNOMED Code(s): 41953596 (2) Status post primary low transverse section Current Visit: Yes Status: Acute Code(s): Z98.891 - HISTORY OF UTERINE SCAR FROM PREVIOUS SURGERY SNOMED Code(s): 424358905 Plan: 1. Discontinue mag sulfate 2. In about 2 hours when she can get out of bed and will discontinue the Smith catheter 3. Monitor blood pressures closely. 4. Pain control 5. We did have a long discussion about how this delivery did not go as she anticipated. This could be a stressor and lead to some depression. I had discussion with her and her to watch for signs and symptoms of depression.
[2018-12-15] MEDS: SENNOSIDES-DOCUSATE SODIUM 1 EACH TAB PO SCH (14:26)
[2018-12-15] MEDS: HYDROcodone/APAP 7.5-325MG 1 EACH TAB PO PRN (19:54)
[2018-12-15] MEDS: IBUPROFEN 600 MG TAB PO PRN (23:04)
[2018-12-16] MEDS: SENNOSIDES-DOCUSATE SODIUM 1 EACH TAB PO SCH ×3 (00:30→19:35)
[2018-12-16] MEDS: HYDROcodone/APAP 7.5-325MG 1 EACH TAB PO PRN ×3 (02:59→19:35)
[2018-12-16] MEDS: IBUPROFEN 600 MG TAB PO PRN ×3 (08:29→23:21)
[2018-12-16] MEDS ORDERED: LABETALOL 200 MG TAB PO STA (12:16)
--- NOTE | 2018-12-16 12:16 | P.PNOBGPC ---
Subjective - Subjective Principal diagnosis: S/P 1*LTCS POD #2 with pre-eclampsia Interval history: PT seen and examined. She denies GARRISON, Vision changes, CP, SOB or calf pain. she is ambulating and voiding and passing flatus. SHe tolerates a regular diet. BPs are elevated 150's/90's so I will add labetalol 100mg bid. Patient reports: Reports appetite normal, Reports voiding normally, Reports pain well controlled, Reports ambulating normally : doing well Objective - Vital Signs Latest vital signs: Vital Signs Temp Pulse Resp BP Pulse Ox 12/16/18 07:40 98.5 F 81 16 154/89 100 12/16/18 04:00 62 16 123/75 12/16/18 00:00 98.4 F 71 16 132/79 98 12/15/18 20:00 98 F 68 16 144/83 100 12/15/18 15:50 98.3 F 81 16 120/82 98 Intake and Output 12/15/18 12/16/18 12/16/18 22:59 06:59 14:59 Intake Total 100 Output Total 700 300 Balance -600 -300 Intake: Oral 100 Output: Urine 700 Estimated Blood Loss 300 Other: # Voids 1 1 1 - Exam Lungs: bilateral: normal Chest: Normal S1, Normal S2 Extremities: Present: normal Abdomen: Present: normal appearance, soft. Absent: distention, tenderness Incision: Present: normal, dry, intact Uterus: Present: normal, firm Assessment and Plan (1) Severe preeclampsia Current Visit: Yes Status: Acute Code(s): O14.10 - SEVERE PRE-ECLAMPSIA, UNSPECIFIED TRIMESTER SNOMED Code(s): 36925653 (2) Status post primary low transverse section Current Visit: Yes Status: Acute Code(s): Z98.891 - HISTORY OF UTERINE SCAR FROM PREVIOUS SURGERY SNOMED Code(s): 889179814 Plan: 1. add labetalol 100mg bid. 2. increase ambulation
[2018-12-16] MEDS: LABETALOL 100 MG TAB PO SCH (20:55)
[2018-12-17] MEDS: HYDROcodone/APAP 7.5-325MG 1 EACH TAB PO PRN ×4 (02:05→23:35)
[2018-12-17] MEDS: IBUPROFEN 600 MG TAB PO PRN ×3 (05:26→19:51)
[2018-12-17] MEDS: SENNOSIDES-DOCUSATE SODIUM 1 EACH TAB PO SCH ×2 (09:11→20:33)
[2018-12-17] MEDS: LABETALOL 100 MG TAB PO SCH ×2 (09:20→20:33)
--- NOTE | 2018-12-17 12:37 | P.PNOBGPC ---
Subjective - Subjective Principal diagnosis: S/P 1*LTCS POD #3 Interval history: PAtient seen and examined. Feeling well. I had to start her on labetalol 100mg bid for her BPs. She had one last night prior to her labetalol that was 160/90. In the night it did come down to 115/70. Denies GARRISON, CP, SOB, calf pain or vision changes. Patient reports: Reports appetite normal, Reports voiding normally, Reports pain well controlled, Reports ambulating normally : doing well Objective - Vital Signs Latest vital signs: Vital Signs Temp Pulse Resp BP Pulse Ox 12/17/18 08:00 98.0 F 88 20 150/93 100 12/17/18 04:00 71 116/72 12/17/18 00:00 98.6 F 82 16 131/88 99 12/16/18 20:55 73 16 161/92 12/16/18 16:00 96.9 F L 64 16 94/52 Intake and Output 12/16/18 12/17/18 12/17/18 22:59 06:59 14:59 Intake Total 100 380 Balance 100 380 Intake: Oral 100 380 Other: Voiding Method Indwelling Catheter # Voids 1 1 2 Weight 80.331 kg - Exam Lungs: bilateral: normal Chest: Normal S1, Normal S2 Extremities: Present: normal Abdomen: Present: normal appearance, soft. Absent: distention, tenderness Incision: Present: normal, dry, intact Uterus: Present: normal, firm Assessment and Plan (1) Severe preeclampsia Current Visit: Yes Status: Acute Code(s): O14.10 - SEVERE PRE-ECLAMPSIA, UNSPECIFIED TRIMESTER SNOMED Code(s): 58162642 (2) Status post primary low transverse section Current Visit: Yes Status: Acute Code(s): Z98.891 - HISTORY OF UTERINE SCAR FROM PREVIOUS SURGERY SNOMED Code(s): 433515207 Plan: 1. increase ambulation 2. cont BP control 3. discussed pumping, she is doing this as baby is in the nursery and not being fed by nipple yet. I would like the beauty sales consultant to see her as well.
[2018-12-17 16:26] VITALS: RESP 16
[2018-12-18] MEDS: IBUPROFEN 600 MG TAB PO PRN ×2 (02:00→12:22)
--- NOTE | 2018-12-18 08:12 | P.DS ---
Providers Date of admission: 12/13/18 09:09 Expected date of discharge: 12/18/18 Attending physician: Rochelle Jaime Primary care physician: Felicitas Ruffin - Discharge Diagnosis(es) (1) Severe preeclampsia Current Visit: Yes Status: Acute (2) Status post primary low transverse section Current Visit: Yes Status: Acute Hospital Course: 23-year-old now presented at 35 weeks with severe preeclampsia. Her blood pressures were 160/100 and she did have a headache when she presented. She got 2 doses of steroids and we started Cervidil induction of labor. After Cervidil and Pitocin cervix was still closed. She underwent a primary low transverse C- section. Postoperatively she was on May sulfate for 24 hours. After the magnesium sulfate was discontinued her blood pressures did start to rise again so the started labetalol 100 mg twice daily. Since this time her blood pressures have been controlled 130s to 140s over 80s to 90s on 100 mg of labetalol twice a day. She denies headache, nausea, vomiting, chest pain, shortness of breath or calf pain or any vision changes. She'll be discharged home postoperative day #4 in stable condition. She will follow-up with me in one week. In her discharge instructions I did explain to her that she still has preeclampsia and needs to be taking it easy, resting frequently, and not alone. She expressed complete understanding of this. Plan - Discharge Summary New Discharge Prescriptions: New Ibuprofen [Motrin] 600 mg PO Q6HR PRN #30 tab PRN Reason: Mild Pain Or Fever >= 100.5 HYDROcodone/APAP 7.5-325MG [[place] 7.5-325] 1 each PO Q6H PRN #12 tab PRN Reason: Severe Pain Labetalol [Trandate] 100 mg PO BID #60 tab No Action Acetaminophen [Tylenol] 500 mg PO Q4-6H PRN PRN Reason: sleep Calcium Carbonate [Tums] 500 mg PO TID PRN PRN Reason: Indigestion Discharge Medication List Acetaminophen [Tylenol] 500 mg PO Q4-6H PRN 12/09/18 [History] Calcium Carbonate [Tums] 500 mg PO TID PRN 12/09/18 [History] HYDROcodone/APAP 7.5-325MG [[place] 7.5-325] 1 each PO Q6H PRN #12 tab 12/18/18 [Rx] Ibuprofen [Motrin] 600 mg PO Q6HR PRN #30 tab 12/18/18 [Rx] Labetalol [Trandate] 100 mg PO BID #60 tab 12/18/18 [Rx] Follow up Appointment(s)/Referral(s): Rochelle Jaime DO [Doctor of Osteopathic Medicine] - 1 Week Discharge Disposition: HOME SELF-CARE
[2018-12-18] MEDS: LABETALOL 100 MG TAB PO SCH (08:55)
[2018-12-18] MEDS: HYDROcodone/APAP 7.5-325MG 1 EACH TAB PO PRN ×2 (08:55→15:20)
[2018-12-18] MEDS: SENNOSIDES-DOCUSATE SODIUM 1 EACH TAB PO SCH (08:55)
[2018-12-18 17:42] VITALS: PULSE 88; TEMP 98.3
[2018-12-18 18:45] VITALS: BP 144/82
== END 2018-12-18 18:20 | disposition home or self-care (01) | DRG 788 ==
LOC: FBPOP 20:43 → 4FBP 23:01 → OBSVTOIN 12-13 09:09
PROVIDERS: ADMIT Obstetrics & Gynecology; ATTEND Obstetrics & Gynecology
PROC: 3E0P7VZ Introduction of Hormone into Female Reproductive, Via Natural or Artificial Opening (ICD-10-PCS; principal; 2018-12-13)
PROC: 3E033VJ Introduction of Other Hormone into Peripheral Vein, Percutaneous Approach (ICD-10-PCS; principal; 2018-12-13)
PROC: 10D00Z1 Extraction of Products of Conception, Low, Open Approach (ICD-10-PCS; 2018-12-14)
DX: O14.14 Severe pre-eclampsia complicating childbirth (principal); Z3A.35 35 weeks gestation of pregnancy; Z37.0 Single live birth; L29.9 Pruritus, unspecified
CPT/HCPCS: 59025; 76805; 81003; 82565; 82570; 83615; 83735; 84156; 84450; 84460; 84520; 84550; 85025; 86850; 86900; 86901; 88307; 90707; 99215

== ENCOUNTER → 2019-12-19 | Outpatient (CLI) | payer BC, OTHER ==
--- NOTE | 2019-12-19 12:50 | US ---
EXAMINATION TYPE: Ultrasound OB <= 14 week fetus DATE OF EXAM: 12/19/2019 12:06 PM COMPARISON: NONE CLINICAL HISTORY: 24-year-old female O46.91 BLEEDING/SPOTTING. Pt states light vaginal bleeding x 3 d ays/ denies pain EXAM PERFORMED: Transabdominal (TA) FINDINGS: EXAM MEASUREMENTS: GESTATIONAL AGE / DATING Physician Established: Not yet established Dates by LMP: (8 weeks/6 days) EDC: 07/24/2020 Dates by First Scan: No prior Dates by Current Scan for: No IUP visualized at this time MATERNAL ANATOMY Uterus: 9.3 x 5.0 x 6.8 cm Right Ovary: 2.9 x 1.8 x 2.3 cm Left Ovary: 1.8 x 1.2 x 1.6 cm Post CDS / Adnexa: wnl Presence of free fluid: No Presence of corpus luteal cyst: Right Ovary= 1.7 x 1.3 x 1.5 cm GESTATION / SURVEY IUP: No IUP seen at this time, decidual reaction abnormally thick= 3.4 cm with a couple small cystic areas scattered within, largest measuring 9 mm. No yolk sac or pole is seen. Date of LMP: 10/18/2019 Beta HcG (if available): Not available at this time Results called to Yumiko at 's office at time of exam IMPRESSION: There seems to be an excessively thickened decidual reaction and a couple small cystic areas scattere d within, largest measuring 9 mm. No yolk sac or pole seen at this time. No beta-hCG is availab le for correlation. Current differential considerations include failed , pseudogestational r eaction from a nonvisualized ectopic , and early intrauterine . Given the thickened area with internal cysts, a complete molar would also be difficult to exclude at this time . Recommend serial beta hCG and ultrasound follow-up.
== END | disposition home or self-care (01) ==
LOC: RADUSWWP 11:49
PROVIDERS: ATTEND Obstetrics & Gynecology
DX: O02.0 Blighted ovum and nonhydatidiform mole (principal); N85.8 Other specified noninflammatory disorders of uterus
CPT/HCPCS: 36415; 76801; 84702

== ENCOUNTER 2019-12-22 10:36 | Emergency (ER) | payer BC, OTHER ==
[2019-12-22 10:57] VITALS: TEMP 99
--- NOTE | 2019-12-22 11:00 | ED ---
Abdominal Pain HPI - General Chief Complaint: Abdominal Pain Stated Complaint: Abd pain, 9 weeks Time Seen by Provider: 12/22/19 10:59 Source: patient Mode of arrival: ambulatory Limitations: no limitations - History of Present Illness Initial Comments: 24yo female pt of Dr. Jaime presenting for pain in , vaginal bleeding. Pt states they could not be sure that she is having an ectopic or not and she was told to come to the ER. Patient states that she does have some lower abdominal cramping. She states that she has had moderate bleeding. Patient denies any nausea vomiting lightheadedness presyncope. Patient denies any fevers remaining review systems negative upon arrival patient appears well and nontoxic distress - Related Data Home Medications Medication Instructions Recorded Confirmed Acetaminophen [Tylenol] 500 mg PO Q4-6H PRN 12/09/18 12/22/19 Calcium Carbonate [Tums] 500 mg PO TID PRN 12/09/18 12/22/19 Previous Rx's Medication Instructions Recorded HYDROcodone/APAP 7.5-325MG [[place] 1 each PO Q6H PRN #12 tab 12/18/18 7.5-325] Ibuprofen [Motrin] 600 mg PO Q6HR PRN #30 tab 12/18/18 Labetalol [Trandate] 100 mg PO BID #60 tab 12/18/18 Allergies Allergy/AdvReac Type Severity Reaction Status Date / Time No Known Allergies Allergy Verified 12/22/19 11:42 Review of Systems ROS Statement: Those systems with pertinent positive or pertinent negative responses have been documented in the HPI. ROS Other: All systems not noted in ROS Statement are negative. Past Medical History Past Medical History: Hypertension Additional Past Medical History / Comment(s): Obstetric history: This is her first . Blood type is A+, antigen negative, rubella nonimmune, hepatitis B negative, HIV negative. History of Any Multi-Drug Resistant Organisms: None Reported Past Surgical History: No Surgical Hx Reported Additional Past Surgical History / Comment(s): Past Anesthesia/Blood Transfusion Reactions: No Reported Reaction Past Psychological History: Depression Smoking Status: Never smoker Past Alcohol Use History: None Reported Past Drug Use History: None Reported - Past Family History Father Family Medical History: No Reported History General Exam - General Exam Comments Initial Comments: General: The patient is awake and alert, in no distress Eye: +3 mm pupils are equal, round and reactive to light, extra-ocular movements are intact. No nystagmus. There is normal conjunctiva bilaterally. No signs of icterus. Ears, nose, mouth and throat: There are moist mucous membranes and no oral lesions. Neck: The neck is supple, there is no tenderness or JVD. Cardiovascular: There is a regular rate and rhythm. No murmur, rub or gallop is appreciated. Respiratory: Lungs are clear to auscultation, respirations are non-labored, breath sounds are equal. No wheezes, stridor, rales, or rhonchi. Gastrointestinal: Soft, non-distended, diffuse lower pelvic pain, abdomen without masses or organomegaly noted. There is no rebound or guarding present. Musculoskeletal: Normal ROM, no tenderness. Strength 5/5. Sensation intact. Radial pulses equal bilaterally 2+. Neurological: A&O x 3. CN II-XII intact grossly, There are no obvious motor or sensory deficits. Coordination appears grossly intact. Speech is normal. Skin: Skin is warm and dry and no rashes or lesions are noted. Psychiatric: Cooperative, appropriate mood & affect, normal judgment. Limitations: no limitations Course Vital Signs 12/22/19 12/22/19 10:53 12:43 Temperature 99.0 F Pulse Rate 83 86 Respiratory 18 16 Rate Blood Pressure 145/99 131/90 O2 Sat by Pulse 97 97 Oximetry Medical Decision Making - Medical Decision Making Labs stable Hgb stable. HR is not elevated. BP stable. patient has moderate to mild bleeding on exam. US concerning for molar , however there is a lower than expected hcg for that ddx. Patient has no evidence of ectopic, no adnexal tenderness on exam. Pt evaluated by Dr. Jaime in the ER. Who will take patient for D&C tomorrow, with pathology. Patient is agreeable to care plan and discharge. Pt is to go to her office after she leaves the ER, pt aware. agreeable to car na. - Lab Data Result diagrams: 12/22/19 11:27 12/22/19 11:27 Lab Results 12/22/19 12/22/19 12/22/19 Range/Units 11:27 11:27 11:27 WBC 6.7 (3.8-10.6) k/uL RBC 4.64 (3.80-5.40) m/uL Hgb 14.3 (11.4-16.0) gm/dL Hct 42.7 (34.0-46.0) % MCV 92.1 (80.0-100.0) fL MCH 30.9 (25.0-35.0) pg MCHC 33.5 (31.0-37.0) g/dL RDW 13.4 (11.5-15.5) % Plt Count 250 (150-450) k/uL Neutrophils % 68 % Lymphocytes % 26 % Monocytes % 5 % Eosinophils % 1 % Basophils % 0 % Neutrophils # 4.6 (1.3-7.7) k/uL Lymphocytes # 1.7 (1.0-4.8) k/uL Monocytes # 0.3 (0-1.0) k/uL Eosinophils # 0.1 (0-0.7) k/uL Basophils # 0.0 (0-0.2) k/uL Sodium 137 (137-145) mmol/L Potassium 4.1 (3.5-5.1) mmol/L Chloride 107 (98-107) mmol/L Carbon Dioxide 21 L (22-30) mmol/L Anion Gap 9 mmol/L BUN 13 (7-17) mg/dL Creatinine 0.88 (0.52-1.04) mg/dL Est GFR (CKD-EPI)AfAm >90 (>60 ml/min/1.73 sqM) Est GFR (CKD-EPI)NonAf >90 (>60 ml/min/1.73 sqM) Glucose 120 H (74-99) mg/dL Calcium 9.4 (8.4-10.2) mg/dL Total Bilirubin 0.5 (0.2-1.3) mg/dL AST 20 (14-36) U/L ALT 13 (4-34) U/L Alkaline Phosphatase 140 H (38-126) U/L Total Protein 7.6 (6.3-8.2) g/dL Albumin 4.4 (3.5-5.0) g/dL HCG, Quant 3357.5 mIU/mL Urine Color Light Red Urine Appearance Cloudy H (Clear) Urine pH 5.5 (5.0-8.0) Ur Specific [place] 1.018 (1.001-1.035) Urine Protein 1+ H (Negative) Urine Glucose (UA) Negative (Negative) Urine Ketones Negative (Negative) Urine Blood Large H (Negative) Urine Nitrite Negative (Negative) Urine Bilirubin Negative (Negative) Urine Urobilinogen <2.0 (<2.0) mg/dL Ur Leukocyte Esterase Small H (Negative) Urine RBC >182 H (0-5) /hpf Urine WBC 3 (0-5) /hpf Blood Type Blood Type Recheck Bld Type Recheck Status 12/22/19 Range/Units 11:27 WBC (3.8-10.6) k/uL RBC (3.80-5.40) m/uL Hgb (11.4-16.0) gm/dL Hct (34.0-46.0) % MCV (80.0-100.0) fL MCH (25.0-35.0) pg MCHC (31.0-37.0) g/dL RDW (11.5-15.5) % Plt Count (150-450) k/uL Neutrophils % % Lymphocytes % % Monocytes % % Eosinophils % % Basophils % % Neutrophils # (1.3-7.7) k/uL Lymphocytes # (1.0-4.8) k/uL Monocytes # (0-1.0) k/uL Eosinophils # (0-0.7) k/uL Basophils # (0-0.2) k/uL Sodium (137-145) mmol/L Potassium (3.5-5.1) mmol/L Chloride (98-107) mmol/L Carbon Dioxide (22-30) mmol/L Anion Gap mmol/L BUN (7-17) mg/dL Creatinine (0.52-1.04) mg/dL Est GFR (CKD-EPI)AfAm (>60 ml/min/1.73 sqM) Est GFR (CKD-EPI)NonAf (>60 ml/min/1.73 sqM) Glucose (74-99) mg/dL Calcium (8.4-10.2) mg/dL Total Bilirubin (0.2-1.3) mg/dL AST (14-36) U/L ALT (4-34) U/L Alkaline Phosphatase (38-126) U/L Total Protein (6.3-8.2) g/dL Albumin (3.5-5.0) g/dL HCG, Quant mIU/mL Urine Color Urine Appearance (Clear) Urine pH (5.0-8.0) Ur Specific [place] (1.001-1.035) Urine Protein (Negative) Urine Glucose (UA) (Negative) Urine Ketones (Negative) Urine Blood (Negative) Urine Nitrite (Negative) Urine Bilirubin (Negative) Urine Urobilinogen (<2.0) mg/dL Ur Leukocyte Esterase (Negative) Urine RBC (0-5) /hpf Urine WBC (0-5) /hpf Blood Type A Positive Blood Type Recheck A Pos Bld Type Recheck Status No Disposition Clinical Impression: Abdominal pain in , Threatened miscarriage Disposition: HOME SELF-CARE Condition: Good Additional Instructions: Please use medication as discussed. Please follow-up in office with Dr. Jaime today and scheduled D&C for tomorrow. Please return to emergency room if the symptoms increase or worsen or for any other concerns. Is patient prescribed a controlled substance at d/c from ED?: No Referrals: Jero Petty MD [Primary Care Provider] - 1-2 days Rochelle Jaime DO [Doctor of Osteopathic Medicine] - 1-2 days Time of Disposition: 13:15
[2019-12-22 12:16] LABS: ALT 13 U/L (4-34); AST 20 U/L (14-36); African American GFR (CKD) >90 (>60 ml/min/1.73 sqM); Albumin 4.4 g/dL (3.5-5.0); Alkaline Phosphatase 140 U/L (38-126); Anion Gap 9 mmol/L; Blood Urea Nitrogen 13 mg/dL (7-17); Calcium 9.4 mg/dL (8.4-10.2); Carbon Dioxide 21 mmol/L (22-30); Chloride 107 mmol/L (98-107); Glucose 120 mg/dL (74-99); Non-African American GFR(CKD) >90 (>60 ml/min/1.73 sqM); Potassium 4.1 mmol/L (3.5-5.1); Sodium 137 mmol/L (137-145); Total Bilirubin 0.5 mg/dL (0.2-1.3); Total Protein 7.6 g/dL (6.3-8.2)
[2019-12-22 12:20] LABS: Appearance,Urine Cloudy (Clear); Bilirubin,Urine Negative (Negative); Blood,Urine Large (Negative); Color,Urine Light Red; Glucose,Urine (UA) Negative (Negative); Ketones,Urine Negative (Negative); Leukocyte Esterase,Urine Small (Negative); Nitrite,Urine Negative (Negative); PH, Urine 5.5 (5.0-8.0); Protein,Urine 1+ (Negative); RBC,Urine >182 /hpf (0-5); Specific Gravity,Urine 1.018 (1.001-1.035); Urobilinogen,Urine <2.0 mg/dL (<2.0); WBC,Urine 3 /hpf (0-5)
[2019-12-22] MEDS ORDERED: ACETAMINOPHEN TAB 325 MG TAB PO STA (12:26)
[2019-12-22 12:29] LABS: Basophils % (A) 0 %; Eosinophils # (A) 0.1 k/uL (0-0.7); Eosinophils % (A) 1 %; HCT 42.7 % (34.0-46.0); HGB 14.3 gm/dL (11.4-16.0); Lymphocytes # (A) 1.7 k/uL (1.0-4.8); Lymphocytes % (A) 26 %; MCH 30.9 pg (25.0-35.0); MCHC 33.5 g/dL (31.0-37.0); MCV 92.1 fL (80.0-100.0); Mean Platelet Volume 6.9; Monocytes # (A) 0.3 k/uL (0-1.0); Monocytes % (A) 5 %; Neutrophils # (A) 4.6 k/uL (1.3-7.7); Neutrophils % (A) 68 %; Platelet Count 250 k/uL (150-450); RBC 4.64 m/uL (3.80-5.40); RDW 13.4 % (11.5-15.5); WBC 6.7 k/uL (3.8-10.6)
[2019-12-22 12:33] LABS: HCG,Quantitative Serum 3357.5 mIU/mL
[2019-12-22 12:45] VITALS: BP 131/90; PULSE 86; RESP 16
--- NOTE | 2019-12-22 12:53 | US ---
EXAMINATION TYPE: Transabdominal DATE OF EXAM: 12/22/2019 12:01 PM COMPARISON: 12/19/2019 CLINICAL HISTORY: repeat US. Pain follow up to previous us on thursday beta not back yet. EXAM PERFORMED: Transabdominal (TA) EXAM MEASUREMENTS: GESTATIONAL AGE / DATING Physician Established: Not yet established Dates by LMP: (9 weeks/2 days) EDC: 07/24/2020 Dates by Current Scan for: No IUP seen at this time MATERNAL ANATOMY Uterus: 7.9 x 4.6 x 5.2 Right Ovary: 3.2 x 1.6 x 2.3 cm Left Ovary: 2.0 x 1.0 x 1.8 cm Post CDS / Adnexa: wnl Presence of free fluid: no Presence of corpus luteal cyst: no Presence of subchorionic bleed: no GESTATION / SURVEY IUP: No IUP seen at this time endometrium is still thickened 5.7 x 3.2 x 3.9 cm with 8 mm anechoic a rosalinda as seen on previous exam. Beta HcG (if available): Not available at this time IMPRESSION: 1. Clinical consideration for molar is recommended 2. No intrauterine gestation identified at this time, correlation with patient's beta-hCG is recommen ded.
== END 2019-12-22 13:25 | disposition home or self-care (01) ==
LOC: EC 10:36
DX: O20.0 Threatened abortion (principal); O26.891 Other specified pregnancy related conditions, first trimester; Z3A.09 9 weeks gestation of pregnancy
CPT/HCPCS: 36415; 76801; 80053; 81001; 84702; 85025; 86900; 86901; 99284

== ENCOUNTER → 2019-12-23 | Day surgery (SDC) | payer BC, OTHER ==
[2019-12-22 14:59] VITALS: BMI 32.5
[~2019-12-23] MED LIST: ACETAMINOPHEN TAB 500 MG TAB ONE; ACETAMINOPHEN TAB 500 MG TAB PO ONE; DEXAMETHASONE SOD PHOSPHATE 10 MG/ML 1 ML VIAL IV ONE; HYDROmorphone 0.5 MG/0.5 ML SYRINGE IVP PRN; KETOROLAC 30 MG/ML 1 ML VIAL ONE; LACTATED RINGERS 1,000 ML IV ONE; LACTATED RINGERS 1,000 ML IV SCH; LIDOCAINE 1% INJ 10MG/ML (20 ML MDV) ONE; MIDAZOLAM 2 MG/2 ML VIAL IV PRN; MIDAZOLAM 2 MG/2 ML VIAL ONE; ONDANSETRON 4 MG/2 ML VIAL IVP ONE; PROPOFOL 10 MG/ML 20 ML VIAL IV ONE; Pre Op ABX Message 1 EACH MISC MISCELLANE ONE; SCOPOLAMINE 1.5MG/72HR PATCH TRANSDERM ONE; fentaNYL (PF) 50 MCG/ML 2 ML AMP ONE
--- NOTE | 2019-12-23 07:10 | P.HPOB ---
History of Present Illness H&P Date: 12/23/19 Chief Complaint: missed ab 24-year-old presents for suction D&C. She's been followed with a few ultrasounds and beta hCGs over the last week. The ultrasound was suspicious for molar with a snowstorm appearance, they beta hCG was 3800 and over the course of a few days and went on to 3300. Review of Systems All systems: negative Constitutional: Denies chills, Denies fever Eyes: denies blurred vision, denies pain Ears, nose, mouth and throat: Denies headache, Denies sore throat Cardiovascular: Denies chest pain, Denies shortness of breath Respiratory: Denies cough Gastrointestinal: Denies abdominal pain, Denies diarrhea, Denies nausea, Denies vomiting Genitourinary: Denies dysuria, Denies hematuria Musculoskeletal: Denies myalgias Integumentary: Denies pruritus, Denies rash Neurological: Denies numbness, Denies weakness Psychiatric: Denies anxiety, Denies depression Endocrine: Denies fatigue, Denies weight change Past Medical History Past Medical History: Hypertension Additional Past Medical History / Comment(s): Obstetric history: First was a section. This is her second . Blood type is A+, antigen negative, rubella nonimmune, hepatitis B negative, HIV negative. History of Any Multi-Drug Resistant Organisms: None Reported Past Surgical History: Section Additional Past Surgical History / Comment(s): CURRENT MISCARRIAGE-POSS. MOLAR Past Anesthesia/Blood Transfusion Reactions: No Reported Reaction Smoking Status: Never smoker - Past Family History Father Family Medical History: No Reported History Medications and Allergies Home Medications Medication Instructions Recorded Confirmed Type Acetaminophen [Tylenol] 500 mg PO Q4-6H PRN 12/09/18 12/23/19 History Calcium Carbonate [Tums] 500 mg PO TID PRN 12/09/18 12/22/19 History HYDROcodone/APAP 7.5-325MG [Marshall 1 each PO Q6H PRN #12 tab 12/18/18 12/22/19 Rx 7.5-325] Labetalol [Trandate] 100 mg PO BID #60 tab 12/18/18 12/23/19 Rx Sertraline [Zoloft] 50 mg PO DAILY 12/22/19 12/23/19 History Allergies Allergy/AdvReac Type Severity Reaction Status Date / Time No Known Allergies Allergy Verified 12/23/19 06:59 Exam Osteopathic Statement: *. No significant issues noted on an osteopathic structural exam other than those noted in the History and Physical/Consult. Vital Signs Temp Pulse Resp BP Pulse Ox 12/23/19 06:55 97.2 F L 87 16 132/82 98 Intake and Output 12/22/19 12/23/19 12/23/19 22:59 06:59 14:59 Other: Weight 78.1 kg Heart: Regular rate and rhythm Lungs: Clear to auscultation bilaterally Abdomen: Soft, nontender Extremities: Negative Homans sign Assessment and Plan (1) Missed Current Visit: Yes Status: Acute Code(s): O02.1 - MISSED SNOMED Code(s): 01939571 Plan: 1. Suction D&C 2. Await pathology and if it is a molar I Will pet adoption counselor the patient regarding beta hCG follow-up and cancer risk.
[2019-12-23 08:04] VITALS: TEMP 98.3
--- NOTE | 2019-12-23 08:44 | P.PCN ---
Date of Procedure: 12/23/19 Preoperative Diagnosis: 1. Missed Postoperative Diagnosis: 1. Missed Procedure(s) Performed: Suction D&C Anesthesia: MAC Surgeon: Rochelle Jaime Estimated Blood Loss (ml): 20 IV fluids (ml): 200 Urine output (ml): 30 Pathology: other (Products of conception) Condition: stable Disposition: PACU Operative Findings: Large amount products of conception Description of Procedure: Patient is taken the operating room and general anesthesia was obtained without difficulty. She is prepped and draped in normal sterile fashion dorsal lithotomy position, legs placed in candy cane stirrups. Weighted speculum place in vagina the anterior lip the cervix was grasped with single-tooth tenaculum. Cervix dilated to #12 Hegar dilator. A #12 curved suction curet was introduced into the uterus and passed several times to remove all tissue and blood. Sharp curet was gently used to ensure all tissue had been removed and then the suction curet was passed and returns. All instruments removed from the vagina. Hemostasis was assured. Patient tolerated procedure well, was sponge and instrument counts were correct 2. She was taken to recovery in stable condition.
[2019-12-23 08:54] VITALS: RESP 17
[2019-12-23 09:08] VITALS: BP 139/84; PULSE 90
== END ==
LOC: OR 06:11
PROVIDERS: ATTEND Obstetrics & Gynecology
DX: O02.1 Missed abortion (principal); I10 Essential (primary) hypertension; Z98.890 Other specified postprocedural states; Z79.899 Other long term (current) drug therapy
CPT/HCPCS: 88305; 59820; J2250; J1100; J2405; J2001; J3010; J1885; J2704

== ENCOUNTER 2020-07-23 12:41 | Outpatient (CLI) | payer BC ==
[2020-07-23 13:49] LABS: Basophils % (A) 0 %; Eosinophils # (A) 0.1 k/uL (0-0.7); Eosinophils % (A) 1 %; HGB 11.8 gm/dL (11.4-16.0); Lymphocytes # (A) 1.9 k/uL (1.0-4.8); Lymphocytes % (A) 23 %; MCH 32.5 pg (25.0-35.0); MCHC 34.7 g/dL (31.0-37.0); MCV 93.8 fL (80.0-100.0); Mean Platelet Volume 7.4; Monocytes # (A) 0.3 k/uL (0-1.0); Monocytes % (A) 4 %; Neutrophils % (A) 71 %; Platelet Count 271 k/uL (150-450); RBC 3.62 m/uL (3.80-5.40); RDW 14.5 % (11.5-15.5); WBC 8.5 k/uL (3.8-10.6)
[2020-07-23 13:50] LABS: ALT 10 U/L (4-34); AST 21 U/L (14-36); African American GFR (CKD) >90 (>60 ml/min/1.73 sqM); Blood Urea Nitrogen 11 mg/dL (7-17); LDH 381 U/L (313-618); Non-African American GFR(CKD) >90 (>60 ml/min/1.73 sqM); Uric Acid 5.6 mg/dL (3.7-7.4)
[2020-07-23 13:55] VITALS: RESP 18; TEMP 98.4
[2020-07-23 13:58] VITALS: BP 130/82; PULSE 78
[2020-07-23 14:01] LABS: Creatinine,Urine Random 20.6 mg/dL; Protein/Creatinine Ratio,Urine 0.777
[2020-07-23 14:26] LABS: Appearance,Urine Clear (Clear); Bilirubin,Urine Negative (Negative); Blood,Urine Negative (Negative); Color,Urine Colorless; Glucose,Urine (UA) Negative (Negative); Ketones,Urine Negative (Negative); Leukocyte Esterase,Urine Negative (Negative); Nitrite,Urine Negative (Negative); PH, Urine 6.5 (5.0-8.0); Protein,Urine Negative (Negative); Specific Gravity,Urine 1.005 (1.001-1.035); Urobilinogen,Urine <2.0 mg/dL (<2.0)
== END 2020-07-23 14:20 | disposition home or self-care (01) ==
LOC: FBPOP 12:41
PROVIDERS: ATTEND Obstetrics & Gynecology
DX: O14.92 Unspecified pre-eclampsia, second trimester (principal); Z3A.21 21 weeks gestation of pregnancy
CPT/HCPCS: 81003; 82565; 82570; 83615; 84156; 84450; 84460; 84520; 84550; 85025; 99215

== ENCOUNTER 2020-11-10 20:00 | Inpatient (IN) | payer BC, OTHER ==
[2020-11-10 21:04] LABS: Basophils % (A) 0 %; Eosinophils # (A) 0.1 k/uL (0-0.7); Eosinophils % (A) 1 %; HCT 32.6 % (34.0-46.0); Lymphocytes # (A) 2.2 k/uL (1.0-4.8); Lymphocytes % (A) 26 %; MCH 30.2 pg (25.0-35.0); MCHC 33.6 g/dL (31.0-37.0); MCV 89.7 fL (80.0-100.0); Mean Platelet Volume 8.4; Monocytes # (A) 0.4 k/uL (0-1.0); Monocytes % (A) 4 %; Neutrophils # (A) 5.7 k/uL (1.3-7.7); Neutrophils % (A) 67 %; Platelet Count 234 k/uL (150-450); Poikilocytosis Slight; RBC 3.64 m/uL (3.80-5.40); RDW 15.6 % (11.5-15.5); WBC 8.5 k/uL (3.8-10.6)
[2020-11-10 21:08] LABS: Creatinine,Urine Random 33.4 mg/dL
[2020-11-10 21:09] LABS: Creatinine,Urine Random 32.2 mg/dL; Protein/Creatinine Ratio,Urine 0.714
[2020-11-10 21:11] LABS: ALT 10 U/L (4-34); AST 23 U/L (14-36); African American GFR (CKD) >90 (>60 ml/min/1.73 sqM); Blood Urea Nitrogen 6 mg/dL (7-17); LDH 469 U/L (313-618); Magnesium 1.5 mg/dL (1.6-2.3); Non-African American GFR(CKD) >90 (>60 ml/min/1.73 sqM); Uric Acid 6.5 mg/dL (3.7-7.4)
[2020-11-10 21:19] LABS: INR 0.9 (<1.2); Partial Thromboplastin Time 21.7 sec (22.0-30.0)
[2020-11-10] MEDS ORDERED: CITRIC ACID-SODIUM CITRATE 15 ML CUP PO ONE (21:38)
[2020-11-10] MEDS ORDERED: LACTATED RINGERS 1,000 ML IV ONE (21:38)
[2020-11-10 21:45] LABS: Appearance,Urine Clear (Clear); Bilirubin,Urine Negative (Negative); Blood,Urine Negative (Negative); Color,Urine Light Yellow; Glucose,Urine (UA) Negative (Negative); Ketones,Urine 1+ (Negative); Leukocyte Esterase,Urine Negative (Negative); Nitrite,Urine Negative (Negative); PH, Urine 6.5 (5.0-8.0); Protein,Urine Negative (Negative); Specific Gravity,Urine 1.005 (1.001-1.035); Urobilinogen,Urine <2.0 mg/dL (<2.0)
--- NOTE | 2020-11-10 21:56 | P.HPOB ---
History of Present Illness H&P Date: 11/10/20 Chief Complaint: Concern for LOF, HTN This patient is a 25 yr female EDC 11/30/2020 estimated gestational age 37 weeks who initially presented to L&D with concerns for LOF. Exam shows that she did not have SROM, but does have persistent elevated blood pressures. care is per Dr. Jaime and complicated by known chronic HTN, although has only been taking Labatelol 100mg once daily with good control. History of failed induction at 35wks for pre-eclampsia and desires repeat section. Pre- eclampsia labs are normal with the exception of elevated protein to creatinine ratio. Blood pressures have improved on bedrest, but per current recommendations will admit for close observation and delivery by repeat section in the morning. Review of Systems Genitourinary: Reports Menstruation: Reports amenorrhea Past Medical History Past Medical History: Hypertension Additional Past Medical History / Comment(s): Obstetric history: First was a section. This is her second . Blood type is A+, antigen negative, rubella nonimmune, hepatitis B negative, HIV negative. History of Any Multi-Drug Resistant Organisms: None Reported Past Surgical History: Section Additional Past Surgical History / Comment(s): CURRENT MISCARRIAGE-POSS. MOLAR Past Anesthesia/Blood Transfusion Reactions: No Reported Reaction Smoking Status: Never smoker Past Alcohol Use History: None Reported Past Drug Use History: None Reported - Past Family History Father Family Medical History: No Reported History Medications and Allergies Home Medications Medication Instructions Recorded Confirmed Type Acetaminophen [Tylenol] 500 mg PO RT-DAILY MDD 4000mg 12/09/18 11/10/20 History Sertraline [Zoloft] 100 mg PO DAILY 12/22/19 11/10/20 History Labetalol [Trandate] 100 mg PO DAILY MDD 200 mg 07/23/20 11/10/20 History Pnv,Calcium 72/Iron/Folic Acid 1 each PO DAILY MDD 1 tab 07/23/20 11/10/20 History [ Plus Tablet] Allergies Allergy/AdvReac Type Severity Reaction Status Date / Time No Known Allergies Allergy Verified 11/10/20 20:07 Exam Vital Signs Temp Pulse Resp BP 11/10/20 21:00 97.0 F L 89 18 162/92 Intake and Output 11/10/20 11/10/20 11/10/20 06:59 14:59 22:59 Other: Weight 78.018 kg - OBG Physical Exam Abdomen: bowel sounds normal, no diffuse tenderness, no bruit present, no guarding noted, no hepatomegaly, no splenomegaly, no mass Vulva: both: normal Vagina: normal moisture, no discharge Cervix: no lesion, no discharge Uterus: enlarged Results labs: A positive, Rubella Immune, RPR-HIV-Hep B neg, GBS negative. Result Diagrams: 11/10/20 20:59 11/10/20 20:59 Abnormal Lab Results - Last 24 Hours (Table) 11/10/20 11/10/20 11/10/20 Range/Units 20:50 20:59 20:59 RBC 3.64 L (3.80-5.40) m/uL Hgb 11.0 L (11.4-16.0) gm/dL Hct 32.6 L (34.0-46.0) % RDW 15.6 H (11.5-15.5) % APTT 21.7 L (22.0-30.0) sec Fibrinogen 536 H (200-500) mg/dL BUN (7-17) mg/dL Magnesium (1.6-2.3) mg/dL U Random Total Protein 23 H (<12) mg/dL 11/10/20 Range/Units 20:59 RBC (3.80-5.40) m/uL Hgb (11.4-16.0) gm/dL Hct (34.0-46.0) % RDW (11.5-15.5) % APTT (22.0-30.0) sec Fibrinogen (200-500) mg/dL BUN 6 L (7-17) mg/dL Magnesium 1.5 L (1.6-2.3) mg/dL U Random Total Protein (<12) mg/dL Assessment and Plan Assessment: This is a 25 yr female 37 weeks gestation with chronic hypertension, now with pre-eclampsia, and previous section. Plan is admission for observation and delivery in the morning by repeat section. (1) 37 weeks gestation of Current Visit: Yes Status: Acute Code(s): Z3A.37 - 37 WEEKS GESTATION OF SNOMED Code(s): 80475559 (2) Chronic hypertension affecting Current Visit: Yes Status: Acute Code(s): O10.919 - UNSP PRE-EXISTING HTN COMP , UNSP TRIMESTER SNOMED Code(s): 25621011 (3) Previous delivery affecting Current Visit: Yes Status: Acute Code(s): O34.219 - MATERNAL CARE FOR UNSP TYPE SCAR FROM PREVIOUS DEL SNOMED Code(s): 742988432 (4) Preeclampsia Current Visit: No Status: Acute Code(s): O14.90 - UNSPECIFIED PRE-ECLAMPSIA, UNSPECIFIED TRIMESTER SNOMED Code(s): 214059685
--- NOTE | 2020-11-11 06:13 | P.PN ---
Progress Note - Text Progress Note Date: 11/11/20 Patient rested overnight. heart tones are category 1. She had sporadic blood pressure elevations but did not require treatment. Plan today is to proceed with delivery by repeat section. I did discuss the surgery and risks with the patient in detail. All questions are answered.
--- NOTE | 2020-11-11 06:56 | P.MSEPDOC ---
Presenting Problems - Arrival Data Date of Arrival on Unit: 11/10/20 Time of Arrival on Unit: 20:00 Mode of Transport: Ambulatory - Complaint OB-Reason for Admission/Chief Complaint: Rule Out SROM Comment: Pt here with c/o of possible SROM at 1500. Medical History - Information : 3 Para: 1 Term: 0 : 1 Abortions: Spontaneous or Elective: 1 Number of Living Children: 1 - Gestational Age Gestational Age by [place]LA (wks/days): 37 Weeks and 1 Days - History Complications: Chronic HTN, Prior Review of Systems - Review of Systems Constitutional: No problems Breast: No problems ENT: No problems Cardiovascular: No problems Respiratory: No problems Gastrointestinal: No problems Genitourinary: No problems Musculoskeletal: No problems Neurological: No problems Skin: No problems Vital Signs - Temperature Temperature: 97.0 F Temperature Source: Temporal Artery Scan - Pulse Right Pulse Rate: 89 Pulse Assessment Method: Automatic Cuff - Respirations Respiratory Rate: 18 Oxygen Delivery Method: Room Air - Blood Pressure Right Arm Blood Pressure: 162/92 Blood Pressure Mean: 115 Blood Pressure Source: Automatic Cuff Medical Screen Scoring - Cervical Exam Dilation (cm): 0 Membranes: Intact - Uterine Contractions Frequency From (mins): 3 Frequency To (mins): 4 Duration From (seconds): 60 Duration To (seconds): 80 Intensity: Mild Resting: Soft to palpation - Assessment - Baby A Baseline FHR: 150 Heart Rate - NICHD Category: Category I (Normal) NST: Reactive Physician Notification - Physician Notified Physician Notified Date: 11/10/20 Physician Notified Time: 20:28 Physician: Alfredo Anguiano New Order Received: Yes - Notification Comment Comment: Pt here with c/o possible SROM at 1500, contractions irregularly at home. Pt's BP elevated to 140s-160s/80-90s. Cervix closed, thick, high. Amnisure negative. C/o GARRISON for last 3 days and NV post meals the last week. Hx of preeclampsia with STAT P C/S at 35wks. Pt currently taking Labetalol for chronic HTN. RN to order preeclampsia labs and call with results. Maternal Triage Index - Maternal Triage Index Presenting for scheduled procedure w/no complaint: No - Stat/Priority 1 Stat Priority 1: No - Urgent/Priority 2 Urgent Priority 2: Yes Provider Notified: Alfredo Anguiano Provider Notified Time: 20:28 Criteria Met for Priority 2: SBP >140. Disposition - Disposition OB Disposition: Triage I agree with the RN Medical Screening Exam: Yes Case reviewed; plan agreed upon as documented in EMR&OBIX.: Yes Diagnosis: MILD TO MODERATE PRE-ECLAMPSIA, THIRD TRIMESTER
[2020-11-11] MEDS: LACTATED RINGERS 1,000 ML IV SCH ×4 (07:30→16:59)
[2020-11-11] MEDS ORDERED: KETOROLAC 15 MG/ML 1 ML VIAL ONE (07:52)
[2020-11-11] MEDS ORDERED: OXYTOCIN 30 UNITS/500 ML NS BAG IV ONE (07:52)
[2020-11-11] MEDS ORDERED: ONDANSETRON 4 MG/2 ML VIAL ONE (07:52)
[2020-11-11] MEDS ORDERED: DEXAMETHASONE SOD PHOSPHATE 10 MG/ML 1 ML VIAL ONE (07:52)
[2020-11-11] MEDS ORDERED: NALBUPHINE 10 MG/ML (1 ML AMP) ONE (07:52)
[2020-11-11] MEDS ORDERED: MORPHINE SULFATE (PF) 0.3 MG/0.3 ML SYR ONE (07:52)
[2020-11-11] MEDS ORDERED: PHENYLEPHRINE-0.9% NACL SYG 1,000 MCG/10 ML SYRINGE ONE (07:52)
[2020-11-11] MEDS ORDERED: diphenhydrAMINE 50 MG/ML 1 ML VIAL IVP PRN (08:46)
[2020-11-11] MEDS ORDERED: HYDROmorphone 2 MG TAB PO PRN (08:46)
[2020-11-11] MEDS ORDERED: SIMETHICONE 80 MG CHEWABLE PO PRN (08:46)
[2020-11-11] MEDS ORDERED: ZOLPIDEM 5 MG TAB PO PRN (08:46)
[2020-11-11] MEDS ORDERED: NALOXONE 0.4 MG/ML 1 ML VIAL IV PRN (08:46)
[2020-11-11] MEDS ORDERED: diphenhydrAMINE 25 MG CAP PO PRN (08:46)
[2020-11-11] MEDS ORDERED: ONDANSETRON 4 MG/2 ML VIAL IVP PRN (08:46)
[2020-11-11] MEDS ORDERED: LANOLIN CREAM 5 GM TUBE TOPICAL PRN (08:46)
[2020-11-11] MEDS ORDERED: METOCLOPRAMIDE 5 MG/ML 2 ML VIAL IVP PRN (08:46)
--- NOTE | 2020-11-11 08:56 | P.OP ---
Date of Procedure: 11/11/20 Preoperative Diagnosis: #1: 37-0/7 week intrauterine . #2: Chronic hypertension with superimposed preeclampsia. #3: Previous section desires repeat Postoperative Diagnosis: Same Procedure(s) Performed: Repeat low transverse section Anesthesia: spinal Surgeon: Alfredo Anguiano Form Grader Operator #1: Lexy Lynn Estimated Blood Loss (ml): 600 Pathology: other (Placenta) Condition: stable Disposition: floor Indications for Procedure: Please see dictated H&P for intimate details of this patient's admission. Brief summary this is a pleasant 25-year-old 2 para 1 female 37 weeks gestation who initially presented to labor and delivery with complaints of leaking of fluid. Patient did not have rupture membranes however was noted to have significant blood pressure elevations. Preeclampsia labs were normal the exception of elevated protein to creatinine ratio. Patient's blood pressures did come down with bedrest but she intermittently would have again elevated blood pressure as high as 170/90. I recommended proceed with delivery at this time per current recommendations. Patient and I did discuss the surgery and risks and risks of infection, bleeding, possible injury bowel, bladder, vessels, and/or other organs. All the patient's questions are answered and a written consent obtained. Operative Findings: This is a viable female Apgars 5 and 8 and 8 at 0810 hours. This patient has a Smith catheter placed to straight drain. She is separately taken to the operating room where she sat up and spinal anesthetic is administered without incident. With an adequate level of anesthesia she has abdominal prep and drape. Scalpels and taken the previous Pfannenstiel incision is incised. A second scalpel is taken down to the fascia and the fascia scored with a knife. Fascial incision extended bilaterally using Oliva scissors. Fascia is dissected off the rectus muscles sharply. Rectus muscles are the peritoneum identified and entered sharply. Peritoneal incision extended superiorly and inferiorly without difficulty. Bladder blade is then placed. Bladder peritoneum was then taken off the lower uterine segment sharply. Scalpels and taken and a low transverse uterine incision is then made. Using a hemostat I into the uterine cavity bluntly and there is loss of copious amount of clear fluid. The infant's head is then gently guided through the incision and with fundal pressure delivered. Mouth and nares are bulb suctioned. There is a nuchal cord which was loose and reduced. With more fundal pressure we then have deliver the rest of this infant's body. This is a vigorous viable female infant Apgars are 5 at 1 minutes 8 at 5 minutes and 8 at 10 minutes. Infant does have spontaneous respiration and good cry but is taken to special care nursery due to some retraction. With this done the umbilical cord was doubly clamped and cut appears to be trivascular. The placenta is then manually extracted intact. Uterus is then externalized and uterine incision demarcated with Velasquez clamps. Uterine incision then closed in 0 Vicryl running locked fashion in 2 layers. Good hemostasis is noted. Bladder peritoneum was then reapproximated using a 3-0 Vicryl again good hemostasis is noted. Excess fluid is removed from the abdomen and pelvis. Uterus, tubes, ovaries appear normal for term gestation. Uterus is then placed back into the abdomen. Parietal peritoneum was then identified and closed using 0 Vicryl running fashion. Rectus muscles are reapproximated in 0 Vicryl interrupted fashion. Fascial incision is then closed using 0 PDS. Fascial incision is intact and hemostatic. Subcutaneous tissues and closed using a 3-0 Vicryl. Skin is and closed using mikaela. All counts are correct 3. There are no complications. Infant and mother are stable in the delivery room and infant are taken special care for further evaluation.
[2020-11-11] MEDS ORDERED: OXYTOCIN 30 UNITS/500 ML NS 30 UNIT in SALINE 1 500ML.BAG IV SCH (09:00)
[2020-11-11] MEDS: LABETALOL 100 MG TAB PO SCH ×2 (10:25→21:01)
[2020-11-11] MEDS: KETOROLAC 15 MG/ML 1 ML VIAL IVP SCH ×2 (14:31→21:01)
[2020-11-12] MEDS: SENNOSIDES-DOCUSATE SODIUM 1 EACH TAB PO SCH ×3 (02:15→20:39)
[2020-11-12] MEDS: KETOROLAC 15 MG/ML 1 ML VIAL IVP SCH (03:56)
--- NOTE | 2020-11-12 06:50 | P.PNOBGPC ---
Subjective - Subjective Patient reports: Reports appetite normal, Reports voiding normally, Reports pain well controlled, Reports ambulating normally : doing well Objective - Vital Signs Latest vital signs: Vital Signs Temp Pulse Resp BP Pulse Ox 11/12/20 00:00 98.0 F 80 16 110/65 11/11/20 20:00 97.6 F 55 L 16 112/72 11/11/20 16:00 98.1 F 73 18 135/90 97 11/11/20 14:45 88 135/88 11/11/20 12:00 96.9 F L 65 16 136/79 98 11/11/20 10:38 97 F L 52 L 14 113/70 97 11/11/20 10:08 52 L 14 112/69 98 11/11/20 09:38 57 L 14 111/67 98 11/11/20 09:23 62 14 99/60 99 11/11/20 09:08 55 L 14 101/57 97 11/11/20 08:53 66 14 108/63 100 11/11/20 08:46 100 11/11/20 08:38 96.6 F L 81 14 103/57 99 11/11/20 06:56 97.0 F L 89 18 162/92 Intake and Output 11/11/20 11/11/20 11/12/20 14:59 22:59 06:59 Intake Total 600 Output Total 800 850 250 Balance -200 -850 -250 Intake: Oral 600 Output: Urine 800 850 250 Other: # Voids 2 - Exam Lungs: bilateral: normal Chest: Normal S1, Normal S2 Extremities: Present: normal Abdomen: Present: normal appearance, soft. Absent: distention, tenderness Incision: Present: normal, dry, intact Uterus: Present: normal, firm Assessment and Plan Assessment: Postoperative day #1. Patient is resting without new complaints. Blood pressures are excellent I did restart her labetalol 100 twice a day. Uterus is firm nontender and her incision is intact and dry. CBC is pending at time of this dictation. Patient is ambulating without difficulty patient is tolerating some solid food. Plan today is to advance her diet, allow the patient to shower, and then continue routine postoperative care. (1) 37 weeks gestation of Current Visit: Yes Status: Acute Code(s): Z3A.37 - 37 WEEKS GESTATION OF SNOMED Code(s): 51933640 (2) Chronic hypertension affecting Current Visit: Yes Status: Acute Code(s): O10.919 - UNSP PRE-EXISTING HTN COMP , UNSP TRIMESTER SNOMED Code(s): 79499691 (3) Previous delivery affecting Current Visit: Yes Status: Acute Code(s): O34.219 - MATERNAL CARE FOR UNSP TYPE SCAR FROM PREVIOUS DEL SNOMED Code(s): 290654008 (4) Preeclampsia Current Visit: No Status: Acute Code(s): O14.90 - UNSPECIFIED PRE-ECLAMPSIA, UNSPECIFIED TRIMESTER SNOMED Code(s): 092941367
[2020-11-12 07:17] LABS: Basophils % (A) 0 %; Eosinophils % (A) 0 %; HCT 25.2 % (34.0-46.0); Lymphocytes # (A) 2.2 k/uL (1.0-4.8); Lymphocytes % (A) 22 %; MCH 30.5 pg (25.0-35.0); MCHC 34.3 g/dL (31.0-37.0); MCV 88.8 fL (80.0-100.0); Mean Platelet Volume 8.7; Monocytes # (A) 0.5 k/uL (0-1.0); Monocytes % (A) 5 %; Neutrophils # (A) 7.2 k/uL (1.3-7.7); Neutrophils % (A) 71 %; Platelet Count 207 k/uL (150-450); Poikilocytosis Slight; RBC 2.84 m/uL (3.80-5.40); RDW 15.8 % (11.5-15.5); WBC 10.2 k/uL (3.8-10.6)
[2020-11-12 07:18] LABS: HGB 8.7 gm/dL (11.4-16.0)
--- NOTE | 2020-11-12 07:22 | P.PN ---
Progress Note - Text Progress Note Date: 11/12/20 Pt without complaints. Ambulating without paresthesia or weakness. Denies headache or backache. Pruritis treated. Pain controlled. Back spinal site clean and dry POD#1 s/p with spinal duramorph - doing well
[2020-11-12] MEDS: LABETALOL 100 MG TAB PO SCH ×2 (08:29→20:38)
[2020-11-12] MEDS: IBUPROFEN 600 MG TAB PO PRN ×3 (08:29→20:38)
[2020-11-12] MEDS: ACETAMINOPHEN TAB 500 MG TAB PO PRN ×3 (11:41→23:51)
[2020-11-12] MEDS: LACTATED RINGERS 1,000 ML IV SCH (19:17)
[2020-11-13] MEDS: IBUPROFEN 600 MG TAB PO PRN ×3 (04:28→16:19)
[2020-11-13] MEDS: LABETALOL 100 MG TAB PO SCH ×2 (08:05→19:52)
[2020-11-13] MEDS: ACETAMINOPHEN TAB 500 MG TAB PO PRN ×3 (08:05→19:52)
[2020-11-13] MEDS: SENNOSIDES-DOCUSATE SODIUM 1 EACH TAB PO SCH ×2 (08:16→19:21)
--- NOTE | 2020-11-13 12:49 | P.PNOBGPC ---
Subjective - Subjective Principal diagnosis: S/P RLTCS POD #2 Interval history: Pt seen and examined. She denies headache, vision changes, nausea, vomiting, chest pain, shortness of breath or any calf pain. She is taking Motrin and Tylenol [id number] but is still uncomfortable so I will order her some oxycodone 5 mg. Her blood pressure is controlled with 100 mg of labetalol twice daily. She did have a blood pressure 160/87 this morning just prior to her medication dose but it came down to 129 over 70s soon after that. Patient reports: Reports appetite normal, Reports voiding normally, Reports pain well controlled, Reports ambulating normally Objective - Vital Signs Latest vital signs: Vital Signs Temp Pulse Resp BP Pulse Ox 11/13/20 10:30 78 129/87 11/13/20 08:00 98.0 F 70 16 160/87 100 11/13/20 00:05 98.1 F 72 16 133/85 100 11/12/20 20:37 98.1 F 86 15 139/82 99 11/12/20 15:31 98 F 81 14 125/72 99 - Exam Lungs: bilateral: normal Chest: Normal S1, Normal S2 Extremities: Present: normal Abdomen: Present: normal appearance, soft. Absent: distention, tenderness Incision: Present: normal, dry, intact Uterus: Present: normal, firm Assessment and Plan (1) Status post repeat low transverse section Current Visit: Yes Status: Acute Code(s): Z98.891 - HISTORY OF UTERINE SCAR FROM PREVIOUS SURGERY SNOMED Code(s): 931405833 (2) Chronic hypertension with superimposed preeclampsia Current Visit: Yes Status: Acute Code(s): O11.9 - PRE-EXISTING HYPERTENSION WITH PRE-ECLAMPSIA, UNSP TRIMESTER SNOMED Code(s): 62520928 Plan: 1. cont to monitor BP 2. pain control
[2020-11-14] MEDS: IBUPROFEN 600 MG TAB PO PRN ×4 (00:18→22:26)
[2020-11-14] MEDS: ACETAMINOPHEN TAB 500 MG TAB PO PRN ×2 (03:49→13:35)
[2020-11-14] MEDS: LABETALOL 100 MG TAB PO SCH ×2 (09:11→20:38)
[2020-11-14] MEDS: SENNOSIDES-DOCUSATE SODIUM 1 EACH TAB PO SCH ×2 (09:11→20:40)
--- NOTE | 2020-11-15 02:02 | P.PNOBGPC ---
Subjective - Subjective Principal diagnosis: S/P RLTCS POD #3 Interval history: Pt seen and examined. Denies headache, vision changes, nausea, vomiting, chest pain, shortness of breath or any calf pain. Patient reports: Reports appetite normal, Reports voiding normally, Reports pain well controlled, Reports ambulating normally Objective - Vital Signs Latest vital signs: Vital Signs Temp Pulse Resp BP 11/15/20 00:00 97.5 F L 64 16 115/72 11/14/20 15:21 97.0 F L 72 16 145/87 11/14/20 09:00 98.3 F 75 16 151/88 - Exam Lungs: bilateral: normal Chest: Normal S1, Normal S2 Extremities: Present: normal Abdomen: Present: normal appearance, soft. Absent: distention, tenderness Incision: Present: normal, dry, intact Uterus: Present: normal, firm Assessment and Plan (1) Status post repeat low transverse section Current Visit: Yes Status: Acute Code(s): Z98.891 - HISTORY OF UTERINE SCAR FROM PREVIOUS SURGERY SNOMED Code(s): 957070526 (2) Chronic hypertension with superimposed preeclampsia Current Visit: Yes Status: Acute Code(s): O11.9 - PRE-EXISTING HYPERTENSION WITH PRE-ECLAMPSIA, UNSP TRIMESTER SNOMED Code(s): 43045345 Plan: 1. cont po care
[2020-11-15] MEDS: IBUPROFEN 600 MG TAB PO PRN ×2 (05:46→15:11)
[2020-11-15] MEDS: ACETAMINOPHEN TAB 500 MG TAB PO PRN (08:47)
[2020-11-15] MEDS: LABETALOL 100 MG TAB PO SCH (08:47)
[2020-11-15] MEDS: SENNOSIDES-DOCUSATE SODIUM 1 EACH TAB PO SCH (08:49)
[2020-11-15 16:46] VITALS: BP 144/85; PULSE 89; RESP 17; TEMP 97.9
== END 2020-11-15 21:30 | disposition home or self-care (01) | DRG 788 ==
LOC: FBPOP 20:00 → OBSVTOIN 21:47 → 4FBP 21:47
PROVIDERS: ADMIT Obstetrics & Gynecology; ATTEND Obstetrics & Gynecology
PROC: 10D00Z1 Extraction of Products of Conception, Low, Open Approach (ICD-10-PCS; principal; 2020-11-11 08:00)
DX: O11.4 Pre-existing hypertension with pre-eclampsia, complicating childbirth (principal); O34.211 Maternal care for low transverse scar from previous cesarean delivery; O69.81X0 Labor and delivery complicated by cord around neck, without compression, not applicable or unspecified; Z37.0 Single live birth; L29.9 Pruritus, unspecified; Z3A.37 37 weeks gestation of pregnancy; Z79.899 Other long term (current) drug therapy; O99.72 Diseases of the skin and subcutaneous tissue complicating childbirth; O10.92 Unspecified pre-existing hypertension complicating childbirth
CPT/HCPCS: 59025; 81003; 82565; 82570; 83615; 83735; 84112; 84156; 84450; 84460; 84520; 84550; 85025; 85384; 85610; 85730; 86850; 86900; 86901; 88307; 99215